=== PATIENT | female | born 1980 | race African-American/Black ===

== ENCOUNTER 2022-04-12 00:47 | Inpatient (IN) | payer MEDICAID ==
[~2022-04-12] VITALS: Ht 167.6 cm; Wt 109.8 kg
[2022-04-12 00:58] VITALS: BP 137/80
--- NOTE | 2022-04-12 01:58 | NUR ---
PT TAKEN TO RADIOLOGY
--- NOTE | 2022-04-12 02:05 | NUR ---
PT RETURN FROM RADIOLOGY TO ER LOBBY
--- NOTE | 2022-04-12 02:12 | NUR ---
PT W/C ASSISTED TO ER BED 4
[2022-04-12 02:25] LABS: BASOPHILS % (AUTO) 0.4 % (0.0-2.0); EOSINOPHILS # (AUTO) 0.1 K/uL (0-0.4); HEMATOCRIT 29.5 % (36-48); HEMOGLOBIN 9.5 g/dL (12.0-16.0); LYMPHOCYTES # (AUTO) 0.8 K/uL (2.5-16.5); LYMPHOCYTES % (AUTO) 23.8 % (20.5-51.1); MEAN CORPUSCULAR HEMOGLOBIN 25 pg (27-31); MEAN CORPUSCULAR HGB CONC 32 g/dL (33-37); MEAN CORPUSCULAR VOLUME 76.9 fL (80-94); MONOCYTES # (AUTO) 0.4 K/uL (0.8-1.0); MONOCYTES % (AUTO) 10.4 % (1.7-9.3); NEUTROPHILS # (AUTO) 2.2 K/uL (1.8-7.7); NEUTROPHILS % (AUTO) 63.4 % (42.2-75.2); PLATELET COUNT (AUTO) 229 K/uL (140-450); RED BLOOD CELL COUNT(AUTO) 3.84 MIL/uL (4.20-5.40); RED CELL DISTRIBUTION WIDTH 16.2 % (11.6-13.7); WHITE BLOOD COUNT (AUTO) 3.5 K/uL (4.8-10.8)
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
--- NOTE | 2022-04-12 02:36 | NUR ---
PATIENT STATED SHE HAS ALLERGIES TO TORADOL AND IODINE (BUT USUALLY TX WITH PRE-MEDICATION OF BENADRYL). ALLERGIES UPDATED IN THE CHART.
--- NOTE | 2022-04-12 02:45 | NUR ---
MD GLASER AT BEDSIDE
[2022-04-12] MEDS ORDERED: diphenhydrAMINE 50 MG/ML VIAL IVP ONE ×2 (02:50→03:00)
[2022-04-12] MEDS ORDERED: MORPHINE SULFATE 4 MG/ML SYR IVP ONE (02:50)
[2022-04-12 02:52] LABS: ALBUMIN 3.7 g/dL (3.4-5.0); ANION GAP 12.1 (8-16); ASPARTATE AMINOTRANSFERASE 13 U/L (15-37); CHLORIDE 103 mmol/L (98-107); CREATININE 0.7 mg/dL (0.6-1.3); GFR ARICAN-AMERICAN 120 mL/min (>90); GLUCOSE 105 mg/dL (74-106); LIPASE 103 U/L (73-393); POTASSIUM 3.1 mmol/L (3.5-5.1); SODIUM SERUM 139 mmol/L (136-145); TOTAL BILIRUBIN 0.3 mg/dL (0.0-1.0); UREA NITROGEN, BLOOD 8 mg/dL (7-18)
--- NOTE | 2022-04-12 02:53 | NUR ---
PATIENT AMBULATING TO THE RR
--- NOTE | 2022-04-12 02:55 | NUR ---
URINE COLLECTED AND WLAKED TO LAB
[2022-04-12 03:20] LABS: BARBITURATE, URINE NEGATIVE ng/ml (NEG <=200); BENZODIAZEPINE, URINE NEGATIVE ng/mL (NEG <=200); CANNABINOID, URINE NEGATIVE ng/mL (NEG <=50); COCAINE, URINE NEGATIVE ng/mL (NEG <=300); OPIATE, URINE NEGATIVE ng/mL (NEG <=2000); PHENCYCLIDINE SCREEN,URINE NEGATIVE ng/mL (NEG <=25)
--- NOTE | 2022-04-12 03:34 | NUR ---
PT TAKEN TO CT
[2022-04-12] MEDS ORDERED: fentaNYL citrate 0.05 MG/ML VIAL IVP ONE (04:10)
[2022-04-12] MEDS ORDERED: POTASSIUM CHLORIDE 10 MEQ TABER PO ONE (04:10)
--- NOTE | 2022-04-12 04:45 | NUR ---
MD GLASER AT BEDSIDE
--- NOTE | 2022-04-12 05:12 | NUR ---
SWAB COLLECTED AND WALKED TO LAB
[2022-04-12] MEDS ORDERED: HEPARIN PER PHARMACY MC PRN ×2 (05:20→08:50)
[2022-04-12] MEDS ORDERED: hePARIN / DEXT 5% PREMIX 250 ML IV ONE (05:20)
[2022-04-12 05:51] LABS: PROTHROMBIN TIME 9.7 secs (10.8-13.4)
[2022-04-12] MEDS ORDERED: LURA20TA PO (06:06)
[2022-04-12] MEDS ORDERED: ATOR10TA PO (06:06)
[2022-04-12] MEDS ORDERED: CARV6.25 PO (06:06)
[2022-04-12] MEDS ORDERED: GABA300C PO (06:06)
[2022-04-12] MEDS ORDERED: ESCI10TA PO (06:08)
[2022-04-12] MEDS ORDERED: METF-346 PO (06:08)
--- NOTE | 2022-04-12 06:28 | NUR ---
LAB AT BEDSIDE
--- NOTE | 2022-04-12 06:40 | NUR ---
PATIETN RESTING IN BED. BED LOW AND LOCKED. ALL NEEDS MET
--- NOTE | 2022-04-12 07:25 | NUR ---
REPORT GIVEN TO MAURIZIO TOURE. TRANSFER OF CARE.
--- NOTE | 2022-04-12 07:38 | NUR ---
SPOKE TO MILLER PHARMACIST, CLARIFICATION REGARDING GIVING HEPARIN WITH PT LAB RESULTS (SEE EMR), STATED THAT IT WAS OK TO GIVE HEPARIN DRIP
[2022-04-12] MEDS ORDERED: HYDROcodone/APAP 7.5/325 MG 1 TAB PO PRN (07:50)
[2022-04-12] MEDS ORDERED: MORPHINE SULFATE 2 MG/ML SYR IVP PRN (07:50)
[2022-04-12] MEDS ORDERED: DOCUSATE SODIUM 100 MG GELCAP PO PRN (07:50)
[2022-04-12] MEDS ORDERED: guaiFENesin DM 200/20 MG-10 ML 10 ML UDC PO PRN (07:50)
[2022-04-12] MEDS ORDERED: ACETAMINOPHEN 325 MG TAB PO PRN (07:50)
[2022-04-12] MEDS ORDERED: POTASSIUM CHLORIDE 10 MEQ TABER PO PRN (07:50)
[2022-04-12] MEDS ORDERED: ONDANSETRON 4 MG/2 ML VIAL IM/IVP PRN (07:50)
[2022-04-12] MEDS ORDERED: INSULIN LISPRO SLIDING SCALE 100 UNITS/ML VIAL SUBQ PRN (07:55)
[2022-04-12] MEDS ORDERED: ALBUTEROL SULFATE/IPRATROPIU 3 ML SOL IH PRN (07:55)
[2022-04-12] MEDS ORDERED: ALBUTEROL 0.083% 2.5 MG/3 ML NEBU INH PRN (07:55)
[2022-04-12] MEDS ORDERED: DEXTROSE 50% 50 ML SYR IVP PRN (07:55)
[2022-04-12] MEDS: metFORMIN 500 MG TAB PO SCH ×2 (08:17→17:00)
[2022-04-12] MEDS ORDERED: hePARIN / DEXT 5% PREMIX 250 ML IV SCH ×2 (08:35→08:50)
[2022-04-12 08:51] LABS: CHOL/HDL RATIO 2.8 (1-4.5); PHOSPHORUS 5.2 mg/dL (2.5-4.9)
--- NOTE | 2022-04-12 09:45 | NUR ---
CLARIFIED WITH DR FIELDS BP MEDICATION STATED TO HOLD BP MEDS WITH SBP LESS THAN 110 AND "OK TO GIVE" SCHEDULED BP MED, SEE EMAR
[2022-04-12] MEDS: PANTOPRAZOLE 40 MG INJ VIAL IVP SCH ×2 (09:56→21:55)
[2022-04-12] MEDS: GABAPENTIN 300 MG CAP PO SCH ×3 (09:57→17:51)
[2022-04-12] MEDS: ESCITALOPRAM 20 MG TAB PO SCH (09:57)
[2022-04-12] MEDS: carvediloL 6.25 MG TAB PO SCH ×2 (10:00→21:52)
--- NOTE | 2022-04-12 10:54 | NUR ---
SAVANNAH LIRA AT BEDSIDE FOR PT EVAL RECEIVE DVERBAL ORDER TO STOP HEPARIN DRIP AND TO START ON LOVENOX 1MG/KG Q12 HOURS AND TO DO BILATERAL DUPLEX OF THE LOWER EXTREMITIES
--- NOTE | 2022-04-12 11:26 | NUR ---
FEATURE WRITER AT BEDSIDE
[2022-04-12] MEDS ORDERED: ENOXAPARIN 120 MG/0.8 ML SYR SUBQ SCH (12:00)
[2022-04-12] MEDS: ALBUTEROL SULFATE/IPRATROPIU 3 ML SOL IH SCH ×3 (12:53→19:00)
--- NOTE | 2022-04-12 13:03 | NUR ---
PT REFUSED 1300 DUONEB TREATMENT.
[2022-04-12] MEDS: BLOOD GLUCOSE MONITORING 1 DEV DEV FS SCH ×3 (13:07→21:00)
[2022-04-12] MEDS ORDERED: IBUPROFEN 600 MG TAB PO PRN (14:55)
--- NOTE | 2022-04-12 14:59 | NUR ---
DR. FIELDS GAVE TORB ORDER FOR IBUPROFEN 600MG Q6H PRN FOR SEVERE PAIN. MADE AWARE OF KETOROLAC ALLERGY AND STATED TO GO THROUGH WITH ORDER.
[2022-04-12] MEDS ORDERED: diphenhydrAMINE 50 MG/ML VIAL IVP SCH (15:00)
[2022-04-12] MEDS: MORPHINE SULFATE 2 MG/ML SYR IVP PRN ×2 (15:53→23:01)
--- NOTE | 2022-04-12 16:10 | NUR ---
PATIENT HAS BEEN SCREENED AND CATEGORIZED MODERATE NUTRITION RISK. PATIENT WILL BE SEEN WITHIN 3-5 DAYS OF ADMISSION. / [address]INE MCD[address]
--- NOTE | 2022-04-12 17:36 | NUR ---
ULTRASOUND AT BEDSIDE
--- NOTE | 2022-04-12 19:27 | NUR ---
PT REFUSED HHN TREATMENT AT THIS TIME. PT HAS HISTORY OF ASTHMA. EXPLAINED TO PT THE RISK AND BENEFIT FROM TREATMENT. PT STATED SHE ONLY TAKES PRN MEDICATION AT HOME AND WOULD LIKE TO BE ON THE SAME SCHEDULE PRN. Addendum: 04/12/22 at 1932 by Zackary Crane RT PT IN NO RESPIRATORY DISTRESS AT THIS TIME. BREATH SOUNDS ARE CLEAR ON AUSCULTATION. PT WAS EDUCATED TO CALL FOR PRN WHEN HAVING SOB.
--- NOTE | 2022-04-12 19:29 | NUR ---
Leann black in [facility] - 04/12/22 at 1930 by CHAZ Pt report given to SIMON SWEET. Transfer of care at this time.
--- NOTE | 2022-04-12 19:30 | NUR ---
Pt report given to JAN STEVEN. Transfer of care at this time.
[2022-04-12] MEDS: ATORVASTATIN 20 MG TAB PO SCH (21:52)
[2022-04-12] MEDS: ENOXAPARIN 120 MG/0.8 ML SYR SUBQ SCH (22:00)
[2022-04-13] MEDS: MORPHINE SULFATE 2 MG/ML SYR IVP PRN ×2 (06:54→17:42)
--- NOTE | 2022-04-13 07:20 | NUR ---
Pt report given to MICKI SALINAS. Transfer of care at this time.
--- NOTE | 2022-04-13 07:26 | NUR ---
Report recieved from MAURIZIO Mullen for transfer of care.
[2022-04-13] MEDS: BLOOD GLUCOSE MONITORING 1 DEV DEV FS SCH ×4 (08:21→20:50)
[2022-04-13] MEDS: metFORMIN 500 MG TAB PO SCH ×2 (08:22→17:41)
--- NOTE | 2022-04-13 08:37 | NUR ---
Patient was given her breakfast tray.
[2022-04-13] MEDS: carvediloL 6.25 MG TAB PO SCH ×2 (09:00→21:01)
--- NOTE | 2022-04-13 09:07 | NUR ---
Dr. Valera at bedside evaluating patient.
[2022-04-13 09:23] LABS: BASOPHILS % (AUTO) 0.5 % (0.0-2.0); EOSINOPHILS # (AUTO) 0.1 K/uL (0-0.4); HEMATOCRIT 26.6 % (36-48); HEMOGLOBIN 8.4 g/dL (12.0-16.0); LYMPHOCYTES # (AUTO) 0.6 K/uL (2.5-16.5); LYMPHOCYTES % (AUTO) 26.6 % (20.5-51.1); MEAN CORPUSCULAR HEMOGLOBIN 24 pg (27-31); MEAN CORPUSCULAR HGB CONC 32 g/dL (33-37); MEAN CORPUSCULAR VOLUME 77.5 fL (80-94); MONOCYTES # (AUTO) 0.3 K/uL (0.8-1.0); MONOCYTES % (AUTO) 13.6 % (1.7-9.3); NEUTROPHILS # (AUTO) 1.2 K/uL (1.8-7.7); NEUTROPHILS % (AUTO) 56.3 % (42.2-75.2); PLATELET COUNT (AUTO) 208 K/uL (140-450); RED BLOOD CELL COUNT(AUTO) 3.43 MIL/uL (4.20-5.40); WHITE BLOOD COUNT (AUTO) 2.2 K/uL (4.8-10.8)
[2022-04-13] MEDS: ESCITALOPRAM 20 MG TAB PO SCH (09:29)
[2022-04-13] MEDS: GABAPENTIN 300 MG CAP PO SCH ×3 (09:29→17:41)
[2022-04-13 09:36] LABS: ANION GAP 8.7 (8-16); CARBON DIOXIDE 30.1 mmol/L (21-32); CREATININE 0.7 mg/dL (0.6-1.3); POTASSIUM 3.8 mmol/L (3.5-5.1)
[2022-04-13] MEDS ORDERED: MORPHINE SULFATE 4 MG/ML SYR IVP ONE (10:35)
[2022-04-13] MEDS: ENOXAPARIN 120 MG/0.8 ML SYR SUBQ SCH ×2 (10:47→21:03)
[2022-04-13] MEDS: PANTOPRAZOLE 40 MG INJ VIAL IVP SCH ×2 (10:51→20:58)
--- NOTE | 2022-04-13 12:05 | NUR ---
Patient was offered her lunch tray. Patient is sitting up on bed to eat.
--- NOTE | 2022-04-13 12:28 | NUR ---
Patient is stating she is having an allergic reaction to fish from lunch tray. Patient is saying her throat is feeling tight. Patient's oxygen is at 97% and respirations are 15. No rash noted. Patient was offered her PRN PO Benadryl and refused. Patient wants her Benadryl IV. Dr. Valera was notified of patients request. Awaiting response. Will continue to monitor patient.
[2022-04-13] MEDS ORDERED: diphenhydrAMINE 50 MG/ML VIAL IVP PRN (13:20)
--- NOTE | 2022-04-13 14:30 | NUR ---
Patient is resting in bed, call light within reach. Vital signs stable. Patient has needs met by staff. Patient is sleeping with no signs of distress. Will continue to monitor.
--- NOTE | 2022-04-13 14:34 | NUR ---
DC PLANNING: THE PATIENT PRESENTED WITH C/O WORSENING CHEST PAIN AND INSPIRATIONAL PAIN, HEMOPTYSIS. H/O OF MITRAL VALVE REGURGE, HTN, PE'S, A-FIB AND ANTI-COAGULATION USE. CT ANGIO SHOWS PE IN THE RLL BRANCH, PULMONARY NODULE ALSO NOTED TO RML. CONSULTS ORDERED WITH PULMONOLOGY, CARDIOLOGY AND GI. K+ 3.1, PHOSPHOROUS 5.2, LIPIDS ELEVATED. STARTED ON LOVENOX, LE DOPPLER NEGATIVE FOR DVT, CT OF ABDOMEN/PELVIS SHOWS POSSIBLE MILD COLITIS. DC PLAN IS FOR THE PATIENT TO RETURN HOME ON PO FIRE EXTINGUISHER CHARGER ANTI-COAGULANTS. CM WILL FOLLOW.
--- NOTE | 2022-04-13 17:14 | NUR ---
Patient will be admitted to care of Dr. Hernandez. Admited to Telemetry. Will go to room 105-A. Belongings list completed. Report to MAURIZIO Mcneil.
--- NOTE | 2022-04-13 17:15 | NUR ---
The patient's care was reviewed and supervised by Kristina Hardy RN.
[2022-04-13 17:30] VITALS: BP 104/61
--- NOTE | 2022-04-13 17:30 | NUR ---
RECEIVED PATIENT FROM ER NURSE FOR CONTINUITY OF CARE. PT ADMITTED FOR PULMONARY EMBOLISM. PT AOX4, ABLE TO MAKE NEEDS KNOWN. RESPIRATIONS EVEN AND UNLABORED. ON ROOM AIR AND NO DISTRESS NOTED. SKIN IS WARM, DRY, AND INTACT. IV SITE ON RAC 18G SALINE LOCKED. ABD SOFT, FLAT, NON-DISTENDED. BOWEL SOUNDS ACTIVE IN ALL QUADRANTS, PT COMPLAINS OF CHEST PAIN 9/10 THAT RADIATES TO THE BACK. WILL MEDICATE WITH PAIN MEDS. PLAN OF CARE DISCUSSED. SAFETY PRECAUTIONS IN PLACE. CALL LIGHT WITHIN REACH. WILL CONTINUE TO MONITOR.
--- NOTE | 2022-04-13 17:42 | NUR ---
COMPLAINED OF CHEST PAIN 06/09. ADMINISTERED PRN PAIN MEDS PER MD ORDERED.
--- NOTE | 2022-04-13 19:41 | NUR ---
ENDORSED TO CERTIFIED PARALEGAL NURSE FOR CONTINUITY OF CARE. PT IS STABLE.
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
[2022-04-13 20:00] VITALS: BP 108/61
--- NOTE | 2022-04-13 21:00 | NUR ---
HS MEDS GIVEN . PRN MEDS MORPHINE AND BENADRYL CHANGED TO Q 4HRS PRN SEVERE PAIN FOR MORPHINE AND PRN ITCHING FOR BENADRYL.PT IS A&OX4 AWAKE IN BED ABLE TO COMMUNICATE NEEDS.RR EVEN AND UNLABORED ON RM AIR. NO DISTRESS NOTED. PT ON TELE MONITOR,CONTINENT OF BOWEL AND BLADDER. SKIN IS INTACT.IV SITE RUA18G S.L. CALL LIGHT WITHIN REACH. ALL SAFETY MEASURES IN PLACE. WILL CONTINUE TO MONITOR.
[2022-04-13] MEDS: ATORVASTATIN 20 MG TAB PO SCH (21:01)
[2022-04-14] VITALS: BP 105/61
[2022-04-14] MEDS: MORPHINE SULFATE 2 MG/ML SYR IVP PRN ×5 (00:19→20:08)
--- NOTE | 2022-04-14 00:30 | NUR ---
MSO4 2MG IVP GIVEN FOR 9/10 PAIN IN BACK AND R KNEE. URINE SENT FOR UA MICROSCOPIC. AT 0100 BENADRYL 25MG IVP GIVEN FOR ITCHING FROM FISH AT LUNCH. ALSO AMBIEN 5MG GIVEN FOR INSOMNIA.
[2022-04-14] MEDS: diphenhydrAMINE 50 MG/ML VIAL IVP PRN ×4 (01:28→20:08)
[2022-04-14] MEDS: ZOLPIDEM 5 MG TAB PO PRN ×2 (01:37→21:03)
[2022-04-14 01:54] LABS: APPEARANCE,URINE CLEAR (CLEAR); BILIRUBIN,URINE NEGATIVE (NEGATIVE); BLOOD, URINE 1+ (NEGATIVE); COLOR,URINE YELLOW (YELLOW); LEUKOCYTE ESTERASE ,URINE NEGATIVE (NEGATIVE); NITRITE, URINE NEGATIVE (NEGATIVE); UGLUCOSE NEGATIVE (NEGATIVE)
[2022-04-14 02:22] LABS: WBC,URINE 0 /HPF (0-5)
[2022-04-14 04:00] VITALS: BP 108/62
--- NOTE | 2022-04-14 05:00 | NUR ---
PT SLEPT SOUNDLY AWOKE FROM PAIN 8/10 SCALE. RECEIVED MSO4 2MG IVP. WILL CONTINUE TO MONITOR.
[2022-04-14] MEDS: BLOOD GLUCOSE MONITORING 1 DEV DEV FS SCH ×4 (06:44→21:01)
--- NOTE | 2022-04-14 07:30 | NUR ---
ENDORSED PT REPORT TO NURSE LUIS SWEET FOR CONTINUITY OF CARE.
--- NOTE | 2022-04-14 07:30 | NUR ---
RECEIVED REPORT FROM PUMP TENDER NURSE FOR CONTINUITY OF CARE. PT IS AWAKE IN BED. A&O4, ABLE TO COMMUNICATE NEEDS. RESPIRATIONS EVEN AND UNLABORED ON ROOM AIR. NO DISTRESS NOTED. PT ON TELE MONITOR. CONTINENT TO VOID AND BM. W/ CRUTCHES INSIDE THE ROOM. SKIN IS INTACT, WARM AND DRY TO TOUCH. IV SITE AT DEREJE 18G, SL. CALL LIGHT WITHIN REACH. SAFETY PRECAUTIONS IN PLACE. WILL CONTINUE TO MONITOR.
[2022-04-14 08:00] VITALS: BP 98/64
--- NOTE | 2022-04-14 08:00 | NUR ---
Patient's Plan of Care was discussed and reviewed with MICKI: CARMEN
[2022-04-14] MEDS: PANTOPRAZOLE 40 MG INJ VIAL IVP SCH ×2 (08:24→20:45)
[2022-04-14] MEDS: ESCITALOPRAM 20 MG TAB PO SCH (08:30)
[2022-04-14] MEDS: ENOXAPARIN 120 MG/0.8 ML SYR SUBQ SCH ×2 (08:30→20:48)
[2022-04-14] MEDS: metFORMIN 500 MG TAB PO SCH ×2 (08:30→16:41)
[2022-04-14] MEDS: GABAPENTIN 300 MG CAP PO SCH ×3 (08:30→16:41)
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
[2022-04-14] MEDS: carvediloL 6.25 MG TAB PO SCH ×2 (09:00→20:46)
[2022-04-14 12:00] VITALS: BP 100/64
--- NOTE | 2022-04-14 12:01 | NUR ---
BLOOD GLUCOSE CHECK DONE. BS 93. NO INSULIN COVERAGE GIVEN. PT COMPLAINT OF PAIN 9/10 ON HER ABD AND CHEST. PRN PAIN MED ADMINISTERED BY RN. PT TOLERATED WELL. NO SOB. NO DIFFICULTY BREATHING. NO DISTRESS NOTED. PT COMFORTABLY LYING IN BED. SAFETY PRECAUTIONS IN PLACE.
[2022-04-14] MEDS: levoFLOXacin 500 MG TAB PO SCH (13:09)
--- NOTE | 2022-04-14 13:13 | NUR ---
LEVOFLOXACIN AND GABAPENTIN GIVEN. PT TEACHING ABOUT MEDS GIVEN. PT VERBALIZED UNDERSTANDING. PT STATED RELIEVED FROM PAIN NOW 02/06.
--- NOTE | 2022-04-14 15:34 | NUR ---
PT COMPLAINED OF ITCHINESS. IV BENADRYL ADMINISTERED BY MAURIZIO MCCRARY.
[2022-04-14 16:00] VITALS: BP 111/70
--- NOTE | 2022-04-14 16:30 | NUR ---
PAGED DR COLLINS REGARDING PTS GI CONSULT.
--- NOTE | 2022-04-14 16:42 | NUR ---
BLOOD GLUCOSE CHECK DONE. BS 99. NO INSULIN COVERAGE GIVEN. PT REFUSED TAKING METFORMIN AND GABAPENTIN. DISCUSSED WITH THE PT THE IMPORTANCE AND RISKS OF NOT TAKING THE MEDS. PT VERBALIZED UNDERSTANDING. PT COMPLAINED OF PAIN 9/10 ON HER STOMACH. MAURIZIO MCCRARY ADMINISTERED PRN PAIN MED ORDERED.
--- NOTE | 2022-04-14 18:07 | NUR ---
DID ROUNDS. PT SLEEPING IN BED. CHEST RISING AND FALLING WITHOUT ACUTE DISTRESS. CALL LIGHT WITHIN REACH. SAFETY PRECAUTIONS IN PLACE.
--- NOTE | 2022-04-14 19:30 | NUR ---
ENDORSED PT TO KNIFE FINISHER NURSE FOR CONTINUITY OF CARE. ALL NEEDS MET THROUGHOUT SHIFT. PT IS STABLE.
--- NOTE | 2022-04-14 19:32 | NUR ---
RECEIVED REPORT FROM AM NURSE LUIS SWEET FOR CONTINUITY OF CARE. PT IS STABLE AWAKE A&OX4 SITTING UP IN BED EATING DINNER.DENIES PAIN. ON RM AIR W/ NO S/S OF ACUTE DISTRESS. RR EVEN AND UNLABORED WITH EQUAL CHEST RISE. GI INTACT. PT'S SKIN IS INTACT. IV DEREJE 18G S.L. PT IS AMBULATORY AND CONTINENT. ALL SAFETY MEASURES IN PLACE. CALL LIGHT WITHIN REACH. WILL CONTINUE TO MONITOR.
[2022-04-14 20:00] VITALS: BP 112/72
--- NOTE | 2022-04-14 20:30 | NUR ---
HS MEDS GIVEN. C/O 06/09 PAIN IN NECK AND BACK ALSO ITCHING. RECEIVED MSO4 2MG IVP FOR PAIN AND BENADRYL 25MG IVP FOR ITCHING. AT 2100 PT REPORTED PAIN AND ITCHING HAD STARTED TO EASE. RECEIVED AMBIEN 5MG PO FOR INSOMNIA.
[2022-04-14] MEDS: ATORVASTATIN 20 MG TAB PO SCH (20:46)
--- NOTE | 2022-04-14 22:00 | NUR ---
MEDS EFFECTIVE PT SLEEPING RR EVEN AND UNLABORED WITH EQUAL CHEST RISE. NAD. WILL CONTINUE TO MONITOR.
[2022-04-15] VITALS: BP 111/71
[2022-04-15] MEDS: diphenhydrAMINE 50 MG/ML VIAL IVP PRN ×4 (00:24→14:24)
[2022-04-15] MEDS: MORPHINE SULFATE 2 MG/ML SYR IVP PRN ×4 (00:24→14:24)
[2022-04-15 04:00] VITALS: BP 111/69
--- NOTE | 2022-04-15 05:15 | NUR ---
AWAKENED W/R KNEE PAIN 8/10 AND ITCHING ON BACK AND NECK. RECEIVED MSO4 2MG IVP FOR PAIN AND BENADRYL 25MG IVP FOR ITCHING.
--- NOTE | 2022-04-15 06:30 | NUR ---
PAIN AND ANTI ITCH MEDS EFFECTIVE. BS=95. NO INSULIN COVERAGE NEEDED. ALL SAFETY MEASURES IN PLACE. WILOL CONTINUE TO MONITOR.
[2022-04-15] MEDS: BLOOD GLUCOSE MONITORING 1 DEV DEV FS SCH ×3 (06:36→16:42)
--- NOTE | 2022-04-15 07:10 | NUR ---
ENDORSED PATIENT TO [facility] FOR CONTINUITY OF CARE. PT IS STABLE . ALL NEEDS MET THROUGHOUT SHIFT.
--- NOTE | 2022-04-15 07:11 | NUR ---
RECEIVED REPORT FROM LEADERSHIP RECRUITER NURSE FOR CONTINUITY OF CARE. PT IS AWAKE IN BED. A&O4, ABLE TO COMMUNICATE NEEDS. RESPIRATIONS EVEN AND UNLABORED ON ROOM AIR. NO DISTRESS NOTED. PT ON TELE MONITOR. SKIN IS INTACT, WARM AND DRY TO TOUCH. IV SITE AT DEREJE 18G, SL. PT CONTINENT TO VOID AND BM. W/ CRUTCHES INSIDE THE ROOM.CALL LIGHT WITHIN REACH. SAFETY PRECAUTIONS IN PLACE. WILL CONTINUE TO MONITOR.
[2022-04-15 08:00] VITALS: BP 121/68
[2022-04-15 08:23] LABS: BASOPHILS % (AUTO) 0.5 % (0.0-2.0); EOSINOPHILS # (AUTO) 0.1 K/uL (0-0.4); EOSINOPHILS % (AUTO) 2.5 % (0.0-4.0); HEMATOCRIT 28.9 % (36-48); HEMOGLOBIN 9.2 g/dL (12.0-16.0); LYMPHOCYTES # (AUTO) 0.8 K/uL (2.5-16.5); MEAN CORPUSCULAR HEMOGLOBIN 25 pg (27-31); MEAN CORPUSCULAR HGB CONC 32 g/dL (33-37); MEAN CORPUSCULAR VOLUME 77.2 fL (80-94); MONOCYTES # (AUTO) 0.3 K/uL (0.8-1.0); NEUTROPHILS # (AUTO) 1.3 K/uL (1.8-7.7); PLATELET COUNT (AUTO) 232 K/uL (140-450); RED BLOOD CELL COUNT(AUTO) 3.74 MIL/uL (4.20-5.40); RED CELL DISTRIBUTION WIDTH 15.8 % (11.6-13.7); WHITE BLOOD COUNT (AUTO) 2.4 K/uL (4.8-10.8)
[2022-04-15 08:58] LABS: ANION GAP 11.9 (8-16); CARBON DIOXIDE 28.2 mmol/L (21-32); CREATININE 0.8 mg/dL (0.6-1.3); POTASSIUM 4.1 mmol/L (3.5-5.1)
[2022-04-15 09:05] LABS: LYMPHOCYTES % (AUTO) 31.8 % (20.5-51.1); MONOCYTES % (AUTO) 12.4 % (1.7-9.3); NEUTROPHILS % (AUTO) 52.8 % (42.2-75.2)
[2022-04-15] MEDS: PANTOPRAZOLE 40 MG INJ VIAL IVP SCH (09:18)
--- NOTE | 2022-04-15 09:19 | NUR ---
SCHEDULED IV MEDS ADMINISTERED BY MAURIZIO ROBBINS. IV BENADRYL AND MORPHINE ADMINISTERED BY RN FOR ABD PAIN 10/10 AND ITCHINESS.
[2022-04-15] MEDS: levoFLOXacin 500 MG TAB PO SCH (09:34)
[2022-04-15] MEDS: carvediloL 6.25 MG TAB PO SCH (09:34)
[2022-04-15] MEDS: metFORMIN 500 MG TAB PO SCH (09:35)
[2022-04-15] MEDS: GABAPENTIN 300 MG CAP PO SCH ×2 (09:35→12:20)
[2022-04-15] MEDS: ESCITALOPRAM 20 MG TAB PO SCH (09:35)
[2022-04-15] MEDS: ENOXAPARIN 120 MG/0.8 ML SYR SUBQ SCH (09:38)
--- NOTE | 2022-04-15 09:42 | NUR ---
ADMINISTERED SCHEDULED MORNING MEDS. PT TEACHING ABOUT MEDS GIVEN. PT STATED UNDERSTANDING. WILL CONTINUE TO MONITOR.
[2022-04-15] MEDS ORDERED: RIVA20TA PO (11:25)
[2022-04-15] MEDS ORDERED: OMEP20EC11 PO (11:26)
--- NOTE | 2022-04-15 11:51 | NUR ---
BLOOD GLUCOSE CHECK DONE. BS 146, NO INSULIN COVERAGE NEEDED. DR PRUITT JUST SAW THE PT. INFORMED PT ABOUT HER DC ORDER. PT VERBALIZED UNDERSTANDING.
[2022-04-15 12:00] VITALS: BP 94/55
[2022-04-15 13:08] VITALS: BP 94/55
--- NOTE | 2022-04-15 14:24 | NUR ---
PT COMPLAINED OF PAIN 9/10 AND ITCHINESS. PRN MEDS ADMINISTERED BY RN.
--- NOTE | 2022-04-15 15:15 | NUR ---
DC PAPERS DISCUSSED WITH THE PT. PT VERBALIZED UNDERSTANDING. PT ESTIMATED TIME OF PICK-UP AT 4PM BY EBEN STATED BY THE PT. PT COMFORTABLY LYING IN BED. NO DISTRESS NOTED. BREATHING EVEN AND UNLABORED. PT STATING RELIEF OF PAIN. NOW 12/07.
--- NOTE | 2022-04-15 16:51 | NUR ---
PT DC HOME. WHEELED VIA WHEELCHAIR OUT TO FRONT LOBBY BY NICKOLAS. REMOVED IV CATHETER INTACT. REMOVED ID WRIST BAND. ALL BELONGINGS TAKEN UPON DC. PT IS STABLE.
--- NOTE | 2022-04-15 16:52 | NUR ---
PT LEFT HER CRUTCHES. PT STATED "I WILL JUST LEAVE THEM HERE BECAUSE I DON'T NEED THEM". PT LEFT STABLE.
[2022-04-15 16:53] VITALS: BP 120/60
== END 2022-04-15 17:15 | disposition home or self-care (01) | DRG 134 ==
LOC: MED 00:47 → MTU 06:25
PROVIDERS: ADMIT Student in an Organized Health Care Education/Training Program; ATTEND Student in an Organized Health Care Education/Training Program
DX: I26.99 Other pulmonary embolism without acute cor pulmonale (principal); K92.0 Hematemesis; D50.9 Iron deficiency anemia, unspecified; K27.9 Peptic ulcer, site unspecified, unspecified as acute or chronic, without hemorrhage or perforation; E87.6 Hypokalemia; R06.03 Acute respiratory distress; E78.00 Pure hypercholesterolemia, unspecified; I48.0 Paroxysmal atrial fibrillation; I34.0 Nonrheumatic mitral (valve) insufficiency; E78.5 Hyperlipidemia, unspecified; J45.909 Unspecified asthma, uncomplicated; R04.2 Hemoptysis; R73.03 Prediabetes; S89.91XA Unspecified injury of right lower leg, initial encounter; X58.XXXA Exposure to other specified factors, initial encounter; Z20.822 Contact with and (suspected) exposure to COVID-19; Z91.041 Radiographic dye allergy status; Z88.8 Allergy status to other drugs, medicaments and biological substances; Z79.899 Other long term (current) drug therapy; Y93.89 Activity, other specified; Y92.89 Other specified places as the place of occurrence of the external cause; Y99.8 Other external cause status
CPT/HCPCS: 36415; 71045; 71275; 80048; 80053; 80305; 81001; 82150; 82948; 83690; 83735; 83880; 84100; 84484; 85025; 85610; 85730; 87081; 93005; 93925; 96374; 96375; 99285; C9113; J1200; J1644; J1650; J2270; J3010; Q0092; Q0163; Q9967

== ENCOUNTER 2022-05-09 19:48 | Emergency (ER) | payer MEDICAID ==
[~2022-05-09] VITALS: Ht 167.6 cm; Wt 109.8 kg
[~2022-05-09 19:48] MED LIST: ATOR10TA PO; CARV6.25 PO; ESCI10TA PO; GABA300C PO; LURA20TA PO; METF-346 PO; OMEP20EC11 PO; RIVA20TA PO
[2022-05-09 20:12] VITALS: BP 130/84
--- NOTE | 2022-05-09 20:41 | NUR ---
PT TAKEN TO BED 3
--- NOTE | 2022-05-09 20:58 | NUR ---
COMPOSING ROOM SUPERVISOR AT BEDSIDE
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
--- NOTE | 2022-05-09 21:16 | NUR ---
Dr. Jackson examining patient.
--- NOTE | 2022-05-09 21:47 | NUR ---
LABS DRAWN AND WALKED TO LAB
[2022-05-09 21:57] LABS: BASOPHILS % (AUTO) 0.3 % (0.0-2.0); EOSINOPHILS # (AUTO) 0.1 K/uL (0-0.4); EOSINOPHILS % (AUTO) 1.2 % (0.0-4.0); HEMOGLOBIN 9.5 g/dL (12.0-16.0); LYMPHOCYTES # (AUTO) 1.1 K/uL (2.5-16.5); LYMPHOCYTES % (AUTO) 16.3 % (20.5-51.1); MEAN CORPUSCULAR HEMOGLOBIN 24 pg (27-31); MEAN CORPUSCULAR HGB CONC 32 g/dL (33-37); MEAN CORPUSCULAR VOLUME 74.6 fL (80-94); MONOCYTES # (AUTO) 0.6 K/uL (0.8-1.0); MONOCYTES % (AUTO) 8.7 % (1.7-9.3); NEUTROPHILS # (AUTO) 4.8 K/uL (1.8-7.7); NEUTROPHILS % (AUTO) 73.5 % (42.2-75.2); PLATELET COUNT (AUTO) 259 K/uL (140-450); RED BLOOD CELL COUNT(AUTO) 4.02 MIL/uL (4.20-5.40); RED CELL DISTRIBUTION WIDTH 16.5 % (11.6-13.7); WHITE BLOOD COUNT (AUTO) 6.6 K/uL (4.8-10.8)
[2022-05-09] MEDS ORDERED: methylPREDNISolone SS 125 MG/2 ML VIAL IVP ONE (22:00)
[2022-05-09] MEDS ORDERED: diphenhydrAMINE 50 MG/ML VIAL IVP ONE (22:00)
[2022-05-09 22:13] LABS: ALBUMIN 3.4 g/dL (3.4-5.0); ANION GAP 13.3 (8-16); ASPARTATE AMINOTRANSFERASE 17 U/L (15-37); CARBON DIOXIDE 27.6 mmol/L (21-32); CHLORIDE 101 mmol/L (98-107); CREATININE 0.9 mg/dL (0.6-1.3); GFR ARICAN-AMERICAN 90 mL/min (>90); GLUCOSE 100 mg/dL (74-106); SODIUM SERUM 139 mmol/L (136-145); TOTAL BILIRUBIN 0.3 mg/dL (0.0-1.0); UREA NITROGEN, BLOOD 8 mg/dL (7-18)
[2022-05-09 22:17] LABS: POTASSIUM 2.9 mmol/L (3.5-5.1)
[2022-05-09] MEDS ORDERED: POTASSIUM CHLORIDE 10 MEQ TABER PO ONE (23:05)
[2022-05-09] MEDS ORDERED: MORPHINE SULFATE 4 MG/ML SYR IVP ONE (23:10)
[2022-05-10] MEDS ORDERED: diphenhydrAMINE 50 MG/ML VIAL IVP ONE (00:10)
--- NOTE | 2022-05-10 00:12 | NUR ---
PT RETURNED FROM CT
--- NOTE | 2022-05-10 00:14 | NUR ---
ERMD AT BEDSIDE EXAMINING PT
--- NOTE | 2022-05-10 00:14 | NUR ---
Leann black in [facility] - 05/10/22 at 0014 by [email or web address] ERMD AT BEDSIDE EXAMINING PT
[2022-05-10] MEDS ORDERED: MORPHINE SULFATE 4 MG/ML SYR IVP ONE (01:15)
[2022-05-10] MEDS ORDERED: MORPHINE SULFATE 4 MG/ML SYR ONE (01:21)
[2022-05-10] MEDS ORDERED: ACET-8386 PO (03:22)
[2022-05-10] MEDS ORDERED: ONDA8TAB87 PO (03:22)
[2022-05-10 03:35] VITALS: BP 122/74
--- NOTE | 2022-05-10 03:36 | NUR ---
Patient discharged with v/s stable. Written and verbal after care instructions given and explained. Patient alert, oriented and verbalized understanding of instructions. Ambulatory with steady gait. All questions addressed prior to discharge. ID band removed. Patient advised to follow up with PMD. Rx of ZOFRAN AND NORCO given. Patient educated on indication of medication including possible reaction and side effects. Opportunity to ask questions provided and answered. VSS, A/OX4, UNLABORED BREATHING, AMBULATORY, AND CALM DEMEANOR.
== END 2022-05-10 03:36 | disposition home or self-care (01) ==
LOC: MED 19:48
DX: R07.89 Other chest pain (principal); E87.6 Hypokalemia; J45.909 Unspecified asthma, uncomplicated; E11.9 Type 2 diabetes mellitus without complications; I10 Essential (primary) hypertension; Z79.84 Long term (current) use of oral hypoglycemic drugs; Z79.899 Other long term (current) drug therapy; Z88.8 Allergy status to other drugs, medicaments and biological substances
CPT/HCPCS: 36415; 71045; 71275; 80053; 81025; 84484; 85025; 93005; 96374; 96375; 96376; 99285; J1200; J1642; J2270; J2930; Q9967

== ENCOUNTER 2022-05-25 12:32 | Inpatient (IN) | payer MEDICAID ==
[~2022-05-25] VITALS: Ht 167.6 cm; Wt 112.0 kg
[~2022-05-25 12:32] MED LIST changes: +ACET-8386 PO; +ONDA8TAB87 PO
[2022-05-25 12:51] VITALS: BP 108/74
--- NOTE | 2022-05-25 12:59 | NUR ---
PT AMBULATED TO ER BED 3
--- NOTE | 2022-05-25 13:14 | NUR ---
DR LOPEZ AT BEDSIDE EVALUATING PT
[2022-05-25] MEDS ORDERED: diphenhydrAMINE 50 MG/ML VIAL IVP ONE ×2 (13:20→15:25)
[2022-05-25] MEDS ORDERED: MORPHINE SULFATE 4 MG/ML SYR IVP ONE ×2 (13:20→15:25)
--- NOTE | 2022-05-25 13:31 | NUR ---
lab at bedside
--- NOTE | 2022-05-25 13:35 | NUR ---
41 y/o female, c/o chest pain x 5 days. Pain is 10/10, sharp, constant, that radiates to back. Took tylenol and [place] at home with minimal relief. Pt also c/o hematemesis x 5 days last episode last night. States she has hx of PE last in January, was prescribed Xarelto but has not started. Pt is A/O x 4, respirations even and unlabored. HOB elevated for comfort. PMH: PE, asthma, HTN, Afib, Mitral valve regurgitation meds: lexapro, gabapentin, latuda, coreg, prilosec, xarelto
--- NOTE | 2022-05-25 13:55 | NUR ---
SOURAV Taylor at bedside for IV by guided U/S.
[2022-05-25 13:59] LABS: BASOPHILS % (AUTO) 0.1 % (0.0-2.0); EOSINOPHILS % (AUTO) 0.1 % (0.0-4.0); HEMATOCRIT 25.9 % (36-48); HEMOGLOBIN 8.3 g/dL (12.0-16.0); LYMPHOCYTES # (AUTO) 0.3 K/uL (2.5-16.5); LYMPHOCYTES % (AUTO) 6.3 % (20.5-51.1); MEAN CORPUSCULAR HEMOGLOBIN 24 pg (27-31); MEAN CORPUSCULAR HGB CONC 32 g/dL (33-37); MONOCYTES # (AUTO) 0.2 K/uL (0.8-1.0); MONOCYTES % (AUTO) 3.9 % (1.7-9.3); NEUTROPHILS # (AUTO) 4.5 K/uL (1.8-7.7); NEUTROPHILS % (AUTO) 89.6 % (42.2-75.2); PLATELET COUNT (AUTO) 174 K/uL (140-450)
[2022-05-25 14:09] LABS: ALBUMIN 2.9 g/dL (3.4-5.0); ANION GAP 10.9 (8-16); CARBON DIOXIDE 26.5 mmol/L (21-32); CREATININE 0.9 mg/dL (0.6-1.3); POTASSIUM 4.4 mmol/L (3.5-5.1); TOTAL BILIRUBIN 0.3 mg/dL (0.0-1.0)
[2022-05-25 14:14] LABS: LIPASE 70 U/L (73-393)
--- NOTE | 2022-05-25 14:16 | NUR ---
TAKEN TO CT VIA GUILLAUME
--- NOTE | 2022-05-25 14:31 | NUR ---
[facility]
[2022-05-25] MEDS ORDERED: NACL 0.9% 1,000 ML IV ONE (15:25)
[2022-05-25] MEDS ORDERED: ENOXAPARIN 100 MG/ML SYR SUBQ ONE (15:30)
--- NOTE | 2022-05-25 15:38 | NUR ---
covid (josette) swab collected
[2022-05-25] MEDS ORDERED: PROP20TA29 PO (16:03)
[2022-05-25] MEDS ORDERED: LURA60TA PO (16:03)
[2022-05-25 16:09] LABS: PROTHROMBIN TIME 10.3 secs (10.8-13.4)
[2022-05-25] MEDS ORDERED: DOCUSATE SODIUM 100 MG GELCAP PO PRN (16:15)
[2022-05-25] MEDS ORDERED: ACETAMINOPHEN 325 MG TAB PO PRN (16:15)
[2022-05-25] MEDS ORDERED: ONDANSETRON 4 MG/2 ML VIAL IVP PRN (16:15)
[2022-05-25] MEDS ORDERED: MAG SULF 2000 MG/WATER PREMIX 50 ML IV PRN (16:15)
[2022-05-25] MEDS ORDERED: ZOLPIDEM 10 MG TAB PO PRN (16:15)
[2022-05-25] MEDS ORDERED: DEXTROSE 50% 50 ML SYR IVP PRN (16:15)
[2022-05-25] MEDS ORDERED: LORazepam 2 MG/ML VIAL IVP PRN (16:15)
[2022-05-25] MEDS ORDERED: POTASSIUM CHLORIDE 10 MEQ TABER PO PRN (16:15)
[2022-05-25] MEDS: BLOOD GLUCOSE MONITORING 1 DEV DEV FS SCH ×2 (17:06→20:38)
--- NOTE | 2022-05-25 17:08 | NUR ---
pt ambulated to restroom with steady gait
--- NOTE | 2022-05-25 17:22 | NUR ---
RECEIVED CRITICAL LAB RESULT OF PTT BEING TOO HIGH AND NEEDS TO BE SENT OUT. DR ABDI PAGED. DR ABDI NOTIFIED THAT PT RECEIVED LOVENOX ABOUT [address] ABDI STATED TO HOLD LOVENOX TONIGHT AND AWAIT REDRAW IN THE MORNING TO DETERMINE IF MORNING DOSE IS TO BE GIVEN.
--- NOTE | 2022-05-25 17:32 | NUR ---
Patient will be admitted to care of Dr Matthews. Admited to telemetry. Will go to room 107b. Belongings list completed. Report to MAURIZIO Barbour.
[2022-05-25] MEDS: GABAPENTIN 300 MG CAP PO SCH (17:47)
[2022-05-25 18:00] VITALS: BP 136/68
--- NOTE | 2022-05-25 18:00 | NUR ---
RECEIVED REPORT FROM ER NURSE. PT A/O X4. ABLE TO MAKE NEEDS KNOWN. NO SOB NOTED. O2 SATURATION @ 100%. PT STATES SHARP PAIN FROM CHEST TO ABDOMEN. CARDIAC DIET. SR ON THE MONITOR. JAVED #18 SL. SCHEDULED MEDICATION GIVEN. CRACKERS AND ORAL FLUIDS PROVIDED REQUESTED. NEEDS ALL MET AT THIS TIME. SAFETY MEASURES IN PLACE. WILL ENDORSE PLAN OF CARE TO NIGHTSHIFT NURSE.
[2022-05-25] MEDS: MORPHINE SULFATE 2 MG/ML SYR IVP PRN ×2 (18:31→22:33)
--- NOTE | 2022-05-25 19:16 | NUR ---
REPORT GIVEN TO [facility] FOR CONTINUITY OF CARE.
[2022-05-25 20:00] VITALS: BP 115/65
--- NOTE | 2022-05-25 20:20 | NUR ---
PATIENT COMPLAINED OF ITCHING, NOTIFIED DR. REDMAN WITH ORDERS NOTED, CARRIED OUT.
[2022-05-25] MEDS ORDERED: diphenhydrAMINE 50 MG/ML VIAL IVP SCH (20:35)
[2022-05-25] MEDS: INSULIN LISPRO SLIDING SCALE 100 UNITS/ML VIAL SUBQ PRN (20:38)
--- NOTE | 2022-05-25 20:38 | NUR ---
BLOOD SUGAR WAS 226, HUMALOG INSULIN ADMINISTERED ORDERED PER SLIDING SCALE.
[2022-05-25] MEDS: ATORVASTATIN 20 MG TAB PO SCH (20:46)
[2022-05-25] MEDS: carvediloL 6.25 MG TAB PO SCH (20:47)
[2022-05-25] MEDS ORDERED: LOVENOX 1MG/KG Q12H SUBQ SCH (21:00)
--- NOTE | 2022-05-25 22:33 | NUR ---
COMPLAINED OF MODERATE BACK PAIN, MEDICATED.
--- NOTE | 2022-05-25 22:35 | NUR ---
RECEIVED REPORT FROM HARIRS JEAN-BAPTISTE. PATIENT IS AAOX4 ON ROOM AIR RESTING COMFORTABLY IN BED. NO S/S OF RESPIRATORY DISTRESS. BREATHING NORMAL UNLABORED. SAFETY MEASURES ARE IN PLACE. CALL LIGHT WITHIN REACH. NO COMPLAINTS OF PAIN AT THIS TIME. WILL CONTINUE TO MONITOR. Addendum: 05/25/22 at 5 by Va Jiang RN RN 1916 RECEIVED REPORT FROM NURSE IGLESIAS.
[2022-05-26] VITALS: BP 104/67
--- NOTE | 2022-05-26 02:00 | NUR ---
PATIENT ASKED FOR CRACKER AND JUICE, NEEDS MET.
[2022-05-26] MEDS: MORPHINE SULFATE 2 MG/ML SYR IVP PRN ×3 (03:39→18:24)
--- NOTE | 2022-05-26 03:39 | NUR ---
V/S : 121/82, 67, 97.0, 18, 98%
[2022-05-26 04:00] VITALS: BP 121/82
[2022-05-26] MEDS ORDERED: ENOXAPARIN 120 MG/0.8 ML SYR SUBQ SCH (05:00)
--- NOTE | 2022-05-26 05:10 | NUR ---
PATIENT IS AWAKE, NO S/S OF RESPIRATORY DISTRESS. BREATHING REGULAR UNLABORED. CALL LIGHT WITHIN REACH.
[2022-05-26] MEDS: BLOOD GLUCOSE MONITORING 1 DEV DEV FS SCH ×4 (06:40→21:29)
[2022-05-26] MEDS: INSULIN LISPRO SLIDING SCALE 100 UNITS/ML VIAL SUBQ PRN ×2 (06:41→11:41)
--- NOTE | 2022-05-26 06:41 | NUR ---
BLOOD SUGAR WAS 161, 2 UNITS HUMALOG INSULIN ADMINISTERED PER SLIDING SCALE.
[2022-05-26 07:13] LABS: BASOPHILS % (AUTO) 0.1 % (0.0-2.0); EOSINOPHILS % (AUTO) 0.1 % (0.0-4.0); HEMATOCRIT 23.5 % (36-48); HEMOGLOBIN 7.5 g/dL (12.0-16.0); LYMPHOCYTES # (AUTO) 0.9 K/uL (2.5-16.5); LYMPHOCYTES % (AUTO) 20.3 % (20.5-51.1); MEAN CORPUSCULAR HEMOGLOBIN 24 pg (27-31); MEAN CORPUSCULAR HGB CONC 32 g/dL (33-37); MEAN CORPUSCULAR VOLUME 73.7 fL (80-94); MONOCYTES # (AUTO) 0.5 K/uL (0.8-1.0); MONOCYTES % (AUTO) 10.6 % (1.7-9.3); NEUTROPHILS # (AUTO) 3.2 K/uL (1.8-7.7); NEUTROPHILS % (AUTO) 68.9 % (42.2-75.2); PLATELET COUNT (AUTO) 223 K/uL (140-450); RED BLOOD CELL COUNT(AUTO) 3.19 MIL/uL (4.20-5.40); RED CELL DISTRIBUTION WIDTH 17.3 % (11.6-13.7); WHITE BLOOD COUNT (AUTO) 4.6 K/uL (4.8-10.8)
--- NOTE | 2022-05-26 07:31 | NUR ---
ENDORSED PATIENT TO MORNING NURSE FOR CONTINUITY OF CARE. PT IS STABLE. NO SOB.
--- NOTE | 2022-05-26 07:32 | NUR ---
RECEIVED REPORT FROM MIS DIRECTOR NURSE FOR CONTINUITY OF CARE. PT SLEEPING, EASILY AROUSABLE BY VERBAL STIMULI. RESPIRATIONS EVEN AND UNLABORED ON RA. PT ON TELE MONITOR. A&O4, ABLE TO COMMUNICATE NEEDS. IV SITE AT [facility] 18G, SL. SKIN IS INTACT, DRY AND WARM TO TOUCH. CALL LIGHT WITHIN REACH. SAFETY PRECAUTIONS IN PLACE. WILL CONTINUE TO MONITOR.
[2022-05-26 07:33] LABS: ANION GAP 9.8 (8-16); CARBON DIOXIDE 28.9 mmol/L (21-32); CREATININE 0.8 mg/dL (0.6-1.3); POTASSIUM 3.7 mmol/L (3.5-5.1)
[2022-05-26 08:00] VITALS: BP 111/70
[2022-05-26] MEDS ORDERED: PANTOPRAZOLE 40 MG TABEC PO SCH (09:00)
[2022-05-26] MEDS ORDERED: PANTOPRAZOLE 40 MG INJ VIAL IVP SCH (09:00)
--- NOTE | 2022-05-26 09:03 | NUR ---
PT COMPLAINING OF CHEST AND BACK PAIN 07/09. PT SPECIFICALLY ASKED FOR MORPHINE. PT STATED "NORCO DOESN'T WORK FOR ME". PT CHECKED AND SEEN BY DR REDMAN. CLARIFIED ORDER FOR PAIN MED. OK TO GIVE MORPHINE Q4.
[2022-05-26] MEDS: carvediloL 6.25 MG TAB PO SCH ×2 (09:20→21:39)
[2022-05-26] MEDS: GABAPENTIN 300 MG CAP PO SCH ×3 (09:20→17:14)
[2022-05-26] MEDS: ESCITALOPRAM 20 MG TAB PO SCH (09:20)
--- NOTE | 2022-05-26 09:22 | NUR ---
ADMINISTERED SCHEDULED MORNING MEDS. PT TEACHING ABOUT MEDS GIVEN. PT VERBALIZED UNDERSTANDING.
--- NOTE | 2022-05-26 09:55 | NUR ---
SCHEDULED IV MED AND PRN MED FOR PAIN ADMINISTERED BY MAURIZIO KAMINSKI. NO ADVERSE REACTION NOTED. WILL CONTINUE TO MONITOR.
--- NOTE | 2022-05-26 10:02 | NUR ---
PATIENT HAS BEEN SCREENED AND CATEGORIZED LOW NUTRITION RISK. PATIENT WILL BE SEEN WITHIN 7 DAYS OF ADMISSION. 06/01/[address]
--- NOTE | 2022-05-26 11:43 | NUR ---
SLIDING SCALE INSULIN ADMINISTERED FOR BS 186.
[2022-05-26 12:00] VITALS: BP 93/58
[2022-05-26] MEDS: PANTOPRAZOLE 40 MG INJ VIAL IVP SCH ×2 (14:00→21:38)
--- NOTE | 2022-05-26 14:00 | NUR ---
PT COMPLAINING OF PAIN 8/10 ON HER BACK. SBP 100'S. INFORMED PT BP TOO LOW FOR MORPHINE. GAVE PAIN MED OPTIONS. PT STATED OTHER PAIN MEDS DOESN'T WORK FOR HER. PT AGREED NOT TO HAVE PAIN MEDS. WILL RETAKE BP.
[2022-05-26] MEDS: SODIUM FERRIC GLUCONATE 125 MG in NACL 0.9% 100 ML IV SCH (14:40)
--- NOTE | 2022-05-26 14:40 | NUR ---
FERRLECIT ADMINISTERED BY MAURIZIO BYERS. NO ADVERSE REACTION NOTED. WILL CONTINUE TO MONITOR.
[2022-05-26 16:00] VITALS: BP 99/69
[2022-05-26] MEDS: ENOXAPARIN 120 MG/0.8 ML SYR SUBQ SCH (17:28)
--- NOTE | 2022-05-26 17:38 | NUR ---
ADMINISTERED SCHEDULED MEDS. NO INSULIN COVERAGE ADMINISTERED FOR BS 109.
--- NOTE | 2022-05-26 18:24 | NUR ---
PRN PAIN MED ADMINISTERED BY MAURIZIO BYERS FOR BACK PAIN 05/09. SBP 120'S .
--- NOTE | 2022-05-26 19:30 | NUR ---
RECEIVED ENDORSEMENT FROM DAY SHIFT NURSE FOR CONTINUITY OF PT CARE. PT IS AWAKE, ALERT, ORIENTED X 4 AND ABLE TO VERBALIZED NEEDS. PT IS ON CARDIAC DIET AT THIS TIME. PT IS CONTINENT AND ABLE TO AMBULATES TO RESTROOM WITH STEADY GAIT. SALINE LOCK ON LEFT UPPER ARM 18G INTACT AND PATENT. SKIN INTACT, NO SKIN PROBLEM. CONTINUE MONITORING.
--- NOTE | 2022-05-26 19:30 | NUR ---
REVISE PREVIOUS NOTES ON IV SITE. SALINE LOCK IS ON RIGHT UPPER ARM.
--- NOTE | 2022-05-26 19:31 | NUR ---
ENDORSED PT TO CONSULTING SALES EXECUTIVE NURSE FOR CONTINUITY OF CARE. ALL NEEDS MET THROUGHOUT SHIFT. PT IS STABLE.
[2022-05-26 20:00] VITALS: BP 112/65
[2022-05-26] MEDS: ATORVASTATIN 20 MG TAB PO SCH (21:41)
[2022-05-27] VITALS: BP 111/72
[2022-05-27] MEDS: MORPHINE SULFATE 2 MG/ML SYR IVP PRN ×5 (00:49→21:27)
--- NOTE | 2022-05-27 00:49 | NUR ---
PT COMPLAINTS OF BACK PAIN 03/09, PAIN MEDICATION MORPHINE ADMINISTERED ORDER.
--- NOTE | 2022-05-27 01:49 | NUR ---
PT IS ASLEEP, NO FACIAL GRIMACING. NO SOB OR DISTRESS.
--- NOTE | 2022-05-27 02:30 | NUR ---
PT IS ASLEEP.
[2022-05-27 04:00] VITALS: BP 108/69
--- NOTE | 2022-05-27 05:22 | NUR ---
PT COMPLAINTS OF PIN ON BACK AND ABDOMEN 03/09. PAIN MEDICATION ADMINISTERED ORDER.
--- NOTE | 2022-05-27 05:30 | NUR ---
RECEIVED A CALL FROM LAB, SAID THAT SHE WAS ABLE TO GET BLOOD DRAWN FROM PT BUT BLOOD WAS HEMOLYZED. SHE ALSO SAID THAT PT WAS HARD STICK. NURSE ASKED IF SHE WILL DRAW BLOOD AGAIN. EXPLOSIVE OPERATOR STATED AGAIN THAT SHE WAS A HARD STICK, SUGGESTED FOR PICC LINE. WAS INFORMED. BLOOD SUGAR CHECK DONE. BS 90. NO INSULIN COVERAGE GIVEN. SCHEDULED MEDS ADMINISTERED. CALL LIGHT WITHIN REACH. SAFETY PRECAUTIONS IN PLACE. WILL CONTINUE TO MONITOR. Addendum: 05/27/22 at 1757 by Evonne Garay LVN WRONG TIME.
[2022-05-27] MEDS: ENOXAPARIN 120 MG/0.8 ML SYR SUBQ SCH ×2 (05:33→17:23)
[2022-05-27] MEDS: BLOOD GLUCOSE MONITORING 1 DEV DEV FS SCH ×4 (06:59→20:54)
--- NOTE | 2022-05-27 07:20 | NUR ---
PT IS AROUSABLE ON STIMULI. PT STATED PAIN MEDICATION IS EFFECTIVE AND PAIN DECREASE. NO ANY ABNORMALITY NOTED. ENDORSED TO DAY SHIFT NURSE FOR CONTINUITY OF CARE. ALL SAFETY MEASURES IN PLACE.
--- NOTE | 2022-05-27 07:21 | NUR ---
RECEIVED REPORT FROM SHIPPER/RECEIVER NURSE FOR CONTINUITY OF CARE. PT SLEEPING, EASILY AROUSABLE BY VERBAL STIMULI. A&O4, ABLE TO COMMUNICATE NEEDS. RESPIRATIONS EVEN AND UNLABORED ON ROOM AIR. NO DISTRESS NOTED. ON TELE MONITOR. SKIN IS INTACT, WARM AND DRY TO TOUCH. IV SITE AT [facility]. CALL LIGHT WITHIN REACH. SAFETY PRECAUTIONS IN PLACE. WILL CONTINUE TO MONITOR.
[2022-05-27 08:00] VITALS: BP 109/68
--- NOTE | 2022-05-27 08:00 | NUR ---
PLAN OF CARE WAS DISCUSSED TO CARMEN SWEET.
[2022-05-27] MEDS: ESCITALOPRAM 20 MG TAB PO SCH (09:53)
[2022-05-27] MEDS: GABAPENTIN 300 MG CAP PO SCH ×3 (09:53→17:22)
[2022-05-27] MEDS: carvediloL 6.25 MG TAB PO SCH ×2 (09:53→20:54)
--- NOTE | 2022-05-27 10:00 | NUR ---
ADMINISTERED SCHEDULED MORNING MEDS. PT TEACHING ABOUT MEDS GIVEN. PT VERBALIZED UNDERSTANDING. PT COMPLAINING OF 10/10 BACK PAIN. RN WAS INFORMED. MAURIZIO ENGLISH WILL ADMINISTER PRN PAIN MED AND SCHEDULED IV MED. PT WAS SEEN AND CHECKED BY DR FIELDS. REMINDED PT ABOUT OCCULT BLOOD LAB TEST. PT VERBALIZED UNDERSTANDING. SAFETY PRECAUTIONS IN PLACE. WILL CONTINUE TO MONITOR.
[2022-05-27] MEDS: PANTOPRAZOLE 40 MG INJ VIAL IVP SCH ×2 (10:24→20:54)
--- NOTE | 2022-05-27 10:24 | NUR ---
PT WAS GIVEN THE SCHEDULED AM MEDCIATION AND WAS MEDICATED WITH PAIN MEDICINE FOR PAIN RATE OF 9/10.
[2022-05-27 12:00] VITALS: BP 106/65
[2022-05-27] MEDS: INSULIN LISPRO SLIDING SCALE 100 UNITS/ML VIAL SUBQ PRN (12:10)
--- NOTE | 2022-05-27 12:18 | NUR ---
BS 167. SLIDING SCALE INSULIN ADMINISTERED.
[2022-05-27] MEDS: SODIUM FERRIC GLUCONATE 125 MG in NACL 0.9% 100 ML IV SCH (14:43)
[2022-05-27] MEDS ORDERED: diphenhydrAMINE 50 MG/ML VIAL IVP SCH (15:32)
--- NOTE | 2022-05-27 15:39 | NUR ---
PT COMPLAINED OF ITCHINESS WITH THE FERRLICIT IVF AND STATES, "THIS HAPPENED THE LAST TIME AND BENADRYL HELPED". FERRLICIT STOPPED AND IV FLUSHED WITH NS. CONTACTED MD AND MD INPUTTED ONE TIME DOSE OF BENADRYL. ONE TIME BENADRYL GIVEN AND FERRLICIT RESTARTED. NEEDS ALL MET AT THIS TIME. ALL SAFETY MEASURES IN PLACE.
[2022-05-27 16:00] VITALS: BP 101/62
--- NOTE | 2022-05-27 16:05 | NUR ---
PT STATES RELIEF OF ITCHINESS. PT TOLERATING FERRLICIT IVF. PRIMARY NURSE BACK FROM BREAK AND REPORT GIVEN.
[2022-05-27 16:57] LABS: ANION GAP 11.8 (8-16); CARBON DIOXIDE 26.4 mmol/L (21-32); CREATININE 0.8 mg/dL (0.6-1.3); POTASSIUM 3.2 mmol/L (3.5-5.1)
--- NOTE | 2022-05-27 17:30 | NUR ---
RECEIVED A CALL FROM LAB, SAID THAT SHE WAS ABLE TO GET BLOOD DRAWN FROM PT BUT BLOOD WAS HEMOLYZED. SHE ALSO SAID THAT PT WAS HARD STICK. NURSE ASKED IF SHE WILL DRAW BLOOD AGAIN. USED BUILDING MATERIALS YARD WORKER STATED AGAIN THAT SHE WAS A HARD STICK, SUGGESTED FOR PICC LINE. WAS INFORMED. BLOOD SUGAR CHECK DONE. BS 90. NO INSULIN COVERAGE GIVEN. SCHEDULED MEDS ADMINISTERED. CALL LIGHT WITHIN REACH. SAFETY PRECAUTIONS IN PLACE. WILL CONTINUE TO MONITOR.
--- NOTE | 2022-05-27 17:45 | NUR ---
PER DR FIELDS, DRAW BLOOD TOMORROW AM. WILL ENDORSE.
--- NOTE | 2022-05-27 19:29 | NUR ---
ENDORSED PT TO CHEMICAL OPERATIONS SPECIALIST NURSE FOR CONTINUITY OF CARE. ALL NEEDS MET THROUGHOUT SHIFT. PT IS STABLE.
[2022-05-27 20:00] VITALS: BP 106/67
[2022-05-27] MEDS: ATORVASTATIN 20 MG TAB PO SCH (20:54)
--- NOTE | 2022-05-27 21:00 | NUR ---
BLOOD SUGAR WAS 106. NO INSULIN COVERAGE NEEDED.
--- NOTE | 2022-05-27 21:15 | NUR ---
SCHEDULED MEDICATION GIVEN. PT TOLERATED WELL. WILL CONTINUE TO MONITOR.
--- NOTE | 2022-05-27 21:30 | NUR ---
PT COMPLAINED OF 9/10 CHEST PAIN. PRN PAIN MEDICATION GIVEN. PT TOLERATED WELL. WILL CONTINUE TO MONITOR.
[2022-05-28] VITALS: BP 106/67
--- NOTE | 2022-05-28 00:15 | NUR ---
PT ASLEEP. VISIBLE CHEST RISE AND FALL NOTED. NO DISTRESS NOTED. WILL CONTINUE TO MONITOR.
[2022-05-28] MEDS: MORPHINE SULFATE 2 MG/ML SYR IVP PRN ×5 (02:02→20:16)
[2022-05-28 04:00] VITALS: BP 107/65
[2022-05-28] MEDS: ENOXAPARIN 120 MG/0.8 ML SYR SUBQ SCH ×2 (05:34→17:49)
[2022-05-28 06:27] LABS: BASOPHILS % (AUTO) 0.1 % (0.0-2.0); EOSINOPHILS # (AUTO) 0.1 K/uL (0-0.4); EOSINOPHILS % (AUTO) 2.1 % (0.0-4.0); HEMATOCRIT 26.5 % (36-48); HEMOGLOBIN 8.6 g/dL (12.0-16.0); LYMPHOCYTES # (AUTO) 0.8 K/uL (2.5-16.5); MEAN CORPUSCULAR HEMOGLOBIN 24 pg (27-31); MEAN CORPUSCULAR HGB CONC 32 g/dL (33-37); MEAN CORPUSCULAR VOLUME 73.7 fL (80-94); MONOCYTES # (AUTO) 0.4 K/uL (0.8-1.0); MONOCYTES % (AUTO) 9.4 % (1.7-9.3); NEUTROPHILS # (AUTO) 2.7 K/uL (1.8-7.7); NEUTROPHILS % (AUTO) 67.4 % (42.2-75.2); PLATELET COUNT (AUTO) 216 K/uL (140-450); RED CELL DISTRIBUTION WIDTH 17.1 % (11.6-13.7)
[2022-05-28 06:31] LABS: ANION GAP 11.8 (8-16); CARBON DIOXIDE 28.9 mmol/L (21-32); CREATININE 0.8 mg/dL (0.6-1.3); POTASSIUM 3.7 mmol/L (3.5-5.1)
[2022-05-28] MEDS: BLOOD GLUCOSE MONITORING 1 DEV DEV FS SCH ×4 (06:46→20:26)
--- NOTE | 2022-05-28 06:52 | NUR ---
PT IS STABLE. NO ACUTE THROUGHOUT THE NIGHT. NO S/SX OF DISTRESS. ALL NEEDS ATTENDED. NO COMPLAINS OF PAIN AT THIS MOMENT. ALL PRECAUTIONS IN PLACE. CALL LIGHT WITHIN REACH. WILL ENDORSE TO AM SHIFT NURSE.
--- NOTE | 2022-05-28 07:30 | NUR ---
RECEIVED PATIENT FROM [employer] PL[employer] MAINTENANCE CONSULTANT NURSE FOR CONTINUITY OF CARE. PT IS AOX4, ABLE TO MAKE NEEDS KNOWN. ON ROOM AIR AND NO RESPIRATORY DISTRESS NOTED. SKIN IS WARM, DRY, AND INTACT. IV SITE ON RIGHT UPPER ARM 18G. SALINE LOCKED. PATIENT DENIES PAIN AT THE MOMENT. PLAN OF CARE DISCUSSED. SAFETY PRECAUTIONS IN PLACE. CALL LIGHT WITHIN REACH. WILL CONTINUE TO MONITOR.
[2022-05-28 08:00] VITALS: BP 115/68
[2022-05-28] MEDS: PANTOPRAZOLE 40 MG INJ VIAL IVP SCH (09:00)
[2022-05-28] MEDS: GABAPENTIN 300 MG CAP PO SCH ×3 (09:01→17:48)
[2022-05-28] MEDS: ESCITALOPRAM 20 MG TAB PO SCH (09:01)
--- NOTE | 2022-05-28 09:05 | NUR ---
ALL SCHEDULED MEDS GIVEN. PT IS STABLE. NO DISTRESS NOTED. WILL CONTINUE TO MONITOR.
[2022-05-28] MEDS: carvediloL 6.25 MG TAB PO SCH ×2 (09:06→20:15)
[2022-05-28 12:00] VITALS: BP 100/60
--- NOTE | 2022-05-28 12:05 | NUR ---
DR. COLLINS AT BEDSIDE. DISCUSSED EGD PROCEDURE. PT VERBALIZED UNDERSTANDING AND SIGNED CONSENT FORM FOR EGD.
--- NOTE | 2022-05-28 12:15 | NUR ---
PATIENT TRANSFERRED TO OR FOR EGD PROCEDURE.
[2022-05-28] MEDS: fentaNYL citrate 0.05 MG/ML VIAL ONE ×2 (12:43→12:45)
[2022-05-28] MEDS: MIDAZOLAM 2 MG/2 ML VIAL ONE ×4 (12:43→12:50)
--- NOTE | 2022-05-28 13:25 | NUR ---
DC PLANNING: ORDER RECEIVED TO GIVE PATIENT RESOURCES FOR XARELTO, PACKET WITH NUMBER TO CALL FOR 30 DAY SUPPLY OF XARELTO GIVEN TO PATIENT AT BEDSIDE. PATIENT SLEEPING, WOKE UP LONG ENOUGH TO ACKNOWLEDGE RESOURCE, WENT BACK TO SLEEP BEFORE CM COULD DO DC PLANNING. CM WILL FOLLOW.
[2022-05-28] MEDS ORDERED: diphenhydrAMINE 50 MG/ML VIAL IVP SCH (14:15)
--- NOTE | 2022-05-28 14:15 | NUR ---
PATIENT COMPLAINED OF GENERALIZED ITCHINESS AFTER EGD. INFORMED MD AND NEW ORDERS WERE RECEIVED
[2022-05-28 16:00] VITALS: BP 99/63
--- NOTE | 2022-05-28 17:55 | NUR ---
ALL SCHEDULED MEDS GIVEN. PT IS STABLE. NO DISTRESS NOTED. WILL CONTINUE TO MONITOR.
--- NOTE | 2022-05-28 19:26 | NUR ---
ENDORSED TO DEDENTER NURSE FOR CONTINUITY OF CARE. PT IS STABLE.
[2022-05-28 20:00] VITALS: BP 103/66
--- NOTE | 2022-05-28 20:00 | NUR ---
RECEIVED REPORT FROM CHEL PARHAM RN FOR CONTINUITY OF CARE. PT IS STABLE IN BED. A%OX4 C/O GENERALIZED ITCHING AND MID STERNAL CHEST PAIN FROM PE. BP 103/66. HS MEDS GIVEN INCLUDING MSO4 2MG IVP FOR 10/10 SHARP MID STERNAL CHEST PAIN. CP=473 NO INSULIN COVERAGE NEEDED. ON RM AIR/O2. RR EVEN AND UNLABORED WITH EQUAL CHEST RISE. GI INTACT. PT'S SKIN INTACT. PT IS AMBULATORY AND CONTINENT. ALL SAFETY MEASURES IN PLACE.CALL LIGHT WITHIN REACH. WILL CONTINUE TO MONITOR.
[2022-05-28] MEDS: ATORVASTATIN 20 MG TAB PO SCH (20:16)
[2022-05-28] MEDS: diphenhydrAMINE 50 MG/ML VIAL IVP PRN (22:33)
[2022-05-29] VITALS: BP 106/68
[2022-05-29] MEDS: MORPHINE SULFATE 2 MG/ML SYR IVP PRN ×4 (02:20→16:18)
--- NOTE | 2022-05-29 02:20 | NUR ---
PT C/O PAIN IN L LOWER LOBE DUE TO PE. RECEIVED MSO4 2MG IVP AND APPLE JUICE WITH SALTINE CRACKERS REQUESTED. PT STABLE.RR EVEN WITH EQUAL CHEST RISE. ALL SAFETY MEASURES IN PLACE. CALL LIGHT WITHIN REACH. WILL CONTINUE WITH FREQ ROUNDS.
[2022-05-29 04:00] VITALS: BP 99/63
[2022-05-29] MEDS: ENOXAPARIN 120 MG/0.8 ML SYR SUBQ SCH (05:38)
[2022-05-29] MEDS: BLOOD GLUCOSE MONITORING 1 DEV DEV FS SCH ×3 (06:24→16:38)
[2022-05-29] MEDS ORDERED: LANSOPRAZOLE 30 MG CAPDR PO SCH (06:30)
--- NOTE | 2022-05-29 06:45 | NUR ---
ERWIN FROM LAB CALLED SHE WAS UNABLE TO DRAW AM LABS ON PT. WILL ENDORSE THE DRAW TO ANOTHER AMMONIA TECHNICIAN.
--- NOTE | 2022-05-29 07:05 | NUR ---
PT C/O SUB STERNAL CHEST PAIN FROM PE. 07/09 RECEIVED MSO4 2 MG IVP. STATES THIS MEDICATION IS EFFECTIVE . PAIN GOES DOWN TO A 5/10 AFTER 2 HOURS. "I WILL HAVE TO BE ON BLOOD THINNERS FOR THE LONGTERM."
--- NOTE | 2022-05-29 07:44 | NUR ---
GOT REPORT FROM THE NIGHT NURSE, PT IS AWAKE DISCUSSED PLAN OF CARE.[id number]
[2022-05-29 08:00] VITALS: BP 90/50
[2022-05-29] MEDS: GABAPENTIN 300 MG CAP PO SCH ×3 (09:04→16:18)
[2022-05-29] MEDS: carvediloL 6.25 MG TAB PO SCH (09:04)
[2022-05-29] MEDS: ESCITALOPRAM 20 MG TAB PO SCH (09:05)
[2022-05-29] MEDS: INSULIN LISPRO SLIDING SCALE 100 UNITS/ML VIAL SUBQ PRN ×2 (11:43→11:46)
[2022-05-29] MEDS ORDERED: RIVA15TA1 PO (11:44)
[2022-05-29] MEDS ORDERED: RIVA20TA PO (11:44)
[2022-05-29 12:00] VITALS: BP 117/52
[2022-05-29] MEDS: diphenhydrAMINE 50 MG/ML VIAL IVP PRN (12:15)
[2022-05-29 12:56] VITALS: BP 90/50
[2022-05-29 16:00] VITALS: BP 93/51
--- NOTE | 2022-05-29 17:42 | NUR ---
PT DISCHARGED HOME,, DISCHARGE INSTRUCTION GIVEN, IV AND ID BAND REMOVED [id number]
== END 2022-05-29 17:40 | disposition home or self-care (01) | DRG 134 ==
LOC: MED 12:32 → MTU 15:42 → MMU 05-27 18:29
PROVIDERS: ADMIT Family Medicine; ATTEND Family Medicine
PROC: 0DB78ZX Excision of Stomach, Pylorus, Via Natural or Artificial Opening Endoscopic, Diagnostic (ICD-10-PCS; principal; 2022-05-28 12:30)
DX: I26.93 Single subsegmental thrombotic pulmonary embolism without acute cor pulmonale (principal); E44.1 Mild protein-calorie malnutrition; K27.4 Chronic or unspecified peptic ulcer, site unspecified, with hemorrhage; I48.0 Paroxysmal atrial fibrillation; R04.2 Hemoptysis; D50.0 Iron deficiency anemia secondary to blood loss (chronic); I34.0 Nonrheumatic mitral (valve) insufficiency; R06.03 Acute respiratory distress; E78.00 Pure hypercholesterolemia, unspecified; E78.5 Hyperlipidemia, unspecified; E66.9 Obesity, unspecified; J45.909 Unspecified asthma, uncomplicated; I10 Essential (primary) hypertension; Z20.822 Contact with and (suspected) exposure to COVID-19; Z88.8 Allergy status to other drugs, medicaments and biological substances; Z91.041 Radiographic dye allergy status; Z79.899 Other long term (current) drug therapy; Z79.891 Long term (current) use of opiate analgesic; Z79.01 Long term (current) use of anticoagulants; Z91.19 Patient's noncompliance with other medical treatment and regimen; Z68.39 Body mass index [BMI] 39.0-39.9, adult
CPT/HCPCS: 36415; 71275; 80048; 80053; 82272; 82948; 83690; 83735; 83880; 84484; 85025; 85610; 85730; 86677; 86886; 86900; 86901; 87081; 93005; 96361; 96372; 96374; 96375; 96376; 99285; C9113; J1200; J1650; J1815; J2250; J2270; J2916; J3010; J7030; Q9967

== ENCOUNTER 2022-06-11 14:15 | Emergency (ER) | payer MEDICAID ==
[~2022-06-11] VITALS: Ht 167.6 cm; Wt 112.0 kg
[~2022-06-11 14:15] MED LIST changes: -ACET-8386 PO; -LURA20TA PO; +LURA60TA PO; -METF-346 PO; +PROP20TA29 PO; +RIVA15TA1 PO
[2022-06-11 14:22] VITALS: BP 136/79
[2022-06-11 15:11] LABS: BASOPHILS % (AUTO) 0.7 % (0.0-2.0); EOSINOPHILS % (AUTO) 0.7 % (0.0-4.0); HEMOGLOBIN 9.4 g/dL (12.0-16.0); LYMPHOCYTES % (AUTO) 21.8 % (20.5-51.1); MEAN CORPUSCULAR HEMOGLOBIN 24 pg (27-31); MEAN CORPUSCULAR HGB CONC 32 g/dL (33-37); MEAN CORPUSCULAR VOLUME 75.7 fL (80-94); MONOCYTES # (AUTO) 0.4 K/uL (0.8-1.0); MONOCYTES % (AUTO) 9.1 % (1.7-9.3); NEUTROPHILS # (AUTO) 3.2 K/uL (1.8-7.7); NEUTROPHILS % (AUTO) 67.7 % (42.2-75.2); PLATELET COUNT (AUTO) 222 K/uL (140-450); RED BLOOD CELL COUNT(AUTO) 3.96 MIL/uL (4.20-5.40); RED CELL DISTRIBUTION WIDTH 19.7 % (11.6-13.7); WHITE BLOOD COUNT (AUTO) 4.8 K/uL (4.8-10.8)
[2022-06-11 15:32] LABS: ALBUMIN 3.4 g/dL (3.4-5.0); TOTAL BILIRUBIN 0.2 mg/dL (0.0-1.0)
--- NOTE | 2022-06-11 16:00 | NUR ---
41/F PRESENTS TO ED WITH C/O COUGH, BACK AND CHEST PAIN AND SOB UPON EXERTION. PATIENT REPORTS REPEATED HX OF PE BUT STATES SHE HAS NOT BEEN ABLE TO FILL HER RX OF BLOOD THINNERS D/T INSURANCE REASONS. PATIENT DENIES N/V/D, FEVERS. PATIENT REPORTS TAKING TYLENOL FOR PAIN WITH NO RELIEF.
[2022-06-11 16:13] VITALS: BP 110/72
--- NOTE | 2022-06-11 16:14 | NUR ---
Patient discharged with v/s stable. Written and verbal after care instructions ABOUT CHEST PAIN AND SHORTNESS OF BREATH given and explained. Patient verbalized understanding. Ambulatory with steady gait. All questions addressed prior to discharge. Advised to follow up with PMD.
== END 2022-06-11 16:14 | disposition home or self-care (01) ==
LOC: MED 14:15
DX: R07.9 Chest pain, unspecified (principal); R06.02 Shortness of breath; R04.2 Hemoptysis; J45.909 Unspecified asthma, uncomplicated; I48.91 Unspecified atrial fibrillation; E11.9 Type 2 diabetes mellitus without complications; I10 Essential (primary) hypertension; Z90.49 Acquired absence of other specified parts of digestive tract; Z98.890 Other specified postprocedural states; Z79.01 Long term (current) use of anticoagulants; Z79.899 Other long term (current) drug therapy; Z88.8 Allergy status to other drugs, medicaments and biological substances; Z88.6 Allergy status to analgesic agent
CPT/HCPCS: 36415; 71045; 80053; 83880; 84484; 85025; 85379; 93005; 99285

== ENCOUNTER 2022-06-27 10:54 | Emergency (ER) | payer MEDICAID ==
[~2022-06-27] VITALS: Ht 167.6 cm; Wt 110.7 kg
[2022-06-27 11:00] VITALS: BP 116/69
--- NOTE | 2022-06-27 11:04 | NUR ---
PT AMBULATED TO BED 02.
--- NOTE | 2022-06-27 11:09 | NUR ---
42/f walked in c/o sharp sternal chest pain radiating to left arm onset 4days ago. pt states she had a syncopal episode today. denies trauma or injury. pt presents with a 20g iv to the right arm. 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 aaox4, ambulatory, ekg at bedside. ALLERGY: IODINE, TORDAL PMH: HX PULMONARY EMBOLISM, MITRAL VALVE REGURGITATION, AFIB
[2022-06-27 11:10] VITALS: BP 128/75
--- NOTE | 2022-06-27 11:54 | NUR ---
lab drawn, xr done
[2022-06-27] MEDS: ACETAMINOPHEN EXTRA STRENGTH 500 MG TAB PO ONE ×2 (12:01→12:04)
--- NOTE | 2022-06-27 12:17 | NUR ---
PT STATED "IM NOT GOING TO WAIT ANYMORE". PATIENT ELOPED FROM FACILITY. DISCHARGE INSTRUCTIONS NOT GIVEN TO PATIENT. DR. AUGUST NOTIFIED.
[2022-06-27 12:19] LABS: BASOPHILS % (AUTO) 0.1 % (0.0-2.0); EOSINOPHILS % (AUTO) 0.3 % (0.0-4.0); HEMATOCRIT 25.4 % (36-48); LYMPHOCYTES # (AUTO) 0.6 K/uL (2.5-16.5); LYMPHOCYTES % (AUTO) 14.2 % (20.5-51.1); MEAN CORPUSCULAR HEMOGLOBIN 24 pg (27-31); MEAN CORPUSCULAR HGB CONC 31 g/dL (33-37); MEAN CORPUSCULAR VOLUME 74.8 fL (80-94); MONOCYTES # (AUTO) 0.3 K/uL (0.8-1.0); MONOCYTES % (AUTO) 8.2 % (1.7-9.3); NEUTROPHILS # (AUTO) 3.2 K/uL (1.8-7.7); NEUTROPHILS % (AUTO) 77.2 % (42.2-75.2); PLATELET COUNT (AUTO) 256 K/uL (140-450); RED BLOOD CELL COUNT(AUTO) 3.39 MIL/uL (4.20-5.40); RED CELL DISTRIBUTION WIDTH 20.1 % (11.6-13.7); WHITE BLOOD COUNT (AUTO) 4.2 K/uL (4.8-10.8)
[2022-06-27 12:37] LABS: ALBUMIN 2.7 g/dL (3.4-5.0); ANION GAP 11.6 (8-16); CARBON DIOXIDE 24.9 mmol/L (21-32); CHLORIDE 109 mmol/L (98-107); CREATININE 0.8 mg/dL (0.6-1.3); GFR ARICAN-AMERICAN 102 mL/min (>90); GLUCOSE 181 mg/dL (74-106); POTASSIUM 3.5 mmol/L (3.5-5.1); SODIUM SERUM 142 mmol/L (136-145); TOTAL BILIRUBIN 0.2 mg/dL (0.0-1.0); UREA NITROGEN, BLOOD 10 mg/dL (7-18)
--- NOTE | 2022-06-27 13:29 | NUR ---
PT ARRIVED TO ED WITH IV ALREADY IN PLACE, PT ELOPED FROM FACILITY. CALLED [facility], SPOKE WITH BENITO AT DISPATCH TO NOTIFY.
== END 2022-06-27 12:17 | disposition left against medical advice (07) ==
LOC: MED 10:54
DX: R07.9 Chest pain, unspecified (principal); J45.909 Unspecified asthma, uncomplicated; E11.9 Type 2 diabetes mellitus without complications; I10 Essential (primary) hypertension; Z88.8 Allergy status to other drugs, medicaments and biological substances; Z79.899 Other long term (current) drug therapy
CPT/HCPCS: 36415; 71045; 80053; 81002; 81025; 84484; 85025; 85379; 93005; 99285; Q0092

== ENCOUNTER 2022-07-15 22:00 | Emergency (ER) | payer MEDICAID ==
[~2022-07-15] VITALS: Ht 167.6 cm; Wt 107.2 kg
[2022-07-15 22:12] VITALS: BP 111/75
--- NOTE | 2022-07-15 22:19 | NUR ---
WALKED IN C/O EPIGASTRIC PAIN THAT RADIATES TO THE LUQ, AND CHEST PAIN THAT RADAITES TO THE BACK WITH INSPIRATION SINCE YESTERDAY. +VOMITING WITH STREAKS OF BLOOD/DIARRHEA. +CHILLS, FEELS DIAPHORETIC, +PALPIATIONS. NOT ON ANY BLOOD THINNERS X3 MONTHS D/T INSURANCE. PT STATES THIS CP FEELS LIKE THE LAST TIME SHE HAD A PE. PMH PULMONARY EMBOLISM, AFIB, MITRAL VALVE REGURGITATION
--- NOTE | 2022-07-15 22:22 | NUR ---
PT TO BED 12
[2022-07-15] MEDS ORDERED: MORPHINE SULFATE 4 MG/ML SYR IVP ONE (23:35)
[2022-07-15] MEDS ORDERED: NACL 0.9% 1,000 ML IV ONE (23:35)
[2022-07-15] MEDS ORDERED: ASPIRIN 325 MG TAB PO ONE (23:35)
[2022-07-15] MEDS ORDERED: ONDANSETRON 4 MG/2 ML VIAL IVP ONE (23:35)
[2022-07-15 23:56] LABS: BASOPHILS % (AUTO) 0.2 % (0.0-2.0); EOSINOPHILS % (AUTO) 0.2 % (0.0-4.0); HEMATOCRIT 27.5 % (36-48); HEMOGLOBIN 8.7 g/dL (12.0-16.0); LYMPHOCYTES # (AUTO) 0.2 K/uL (2.5-16.5); LYMPHOCYTES % (AUTO) 6.1 % (20.5-51.1); MEAN CORPUSCULAR HEMOGLOBIN 23 pg (27-31); MEAN CORPUSCULAR HGB CONC 32 g/dL (33-37); MEAN CORPUSCULAR VOLUME 73.6 fL (80-94); MONOCYTES # (AUTO) 0.1 K/uL (0.8-1.0); MONOCYTES % (AUTO) 1.6 % (1.7-9.3); NEUTROPHILS # (AUTO) 3.7 K/uL (1.8-7.7); NEUTROPHILS % (AUTO) 91.9 % (42.2-75.2); PLATELET COUNT (AUTO) 226 K/uL (140-450); RED BLOOD CELL COUNT(AUTO) 3.73 MIL/uL (4.20-5.40); RED CELL DISTRIBUTION WIDTH 21.2 % (11.6-13.7)
--- NOTE | 2022-07-16 00:16 | NUR ---
Ultrasound at bedside.
--- NOTE | 2022-07-16 00:39 | NUR ---
ADRIAN VERDUZCO ATTEMPTED TO DO AN ULTRASOUND IV 2X. NO SUCCESS AT THIS TIME. WILL GIVE PT A BREAK.
[2022-07-16 00:43] LABS: ALBUMIN 3.2 g/dL (3.4-5.0); ANION GAP 16.5 (8-16); ASPARTATE AMINOTRANSFERASE 35 U/L (15-37); CHLORIDE 105 mmol/L (98-107); CREATININE 0.9 mg/dL (0.6-1.3); GFR ARICAN-AMERICAN 89 mL/min (>90); GLUCOSE 182 mg/dL (74-106); POTASSIUM 3.5 mmol/L (3.5-5.1); SODIUM SERUM 140 mmol/L (136-145); TOTAL BILIRUBIN 0.5 mg/dL (0.0-1.0); UREA NITROGEN, BLOOD 5 mg/dL (7-18)
--- NOTE | 2022-07-16 02:15 | NUR ---
PATIENT STATED THAT SHE USUALLY DOES ANGIO , BUT IS PRE-MEDICATED WITH BENADRYL 70. MD MADE AWARE. ORDERS CARRIED OUT
[2022-07-16] MEDS ORDERED: diphenhydrAMINE 50 MG/ML VIAL ONE (02:28)
[2022-07-16] MEDS ORDERED: methylPREDNISolone SS 125 MG/2 ML VIAL ONE (02:29)
[2022-07-16] MEDS ORDERED: diphenhydrAMINE 50 MG/ML VIAL IVP ONE (02:30)
[2022-07-16] MEDS ORDERED: methylPREDNISolone SS 125 MG/2 ML VIAL IVP ONE (02:30)
--- NOTE | 2022-07-16 02:46 | NUR ---
PT TAKEN TO CT
--- NOTE | 2022-07-16 03:01 | NUR ---
PT RETURN FROM CT
[2022-07-16] MEDS ORDERED: MORPHINE SULFATE 4 MG/ML SYR ONE (03:10)
[2022-07-16] MEDS ORDERED: ONDANSETRON 4 MG/2 ML VIAL ONE (03:30)
[2022-07-16] MEDS ORDERED: ASPIRIN 325 MG TAB ONE (03:30)
[2022-07-16 03:47] LABS: APPEARANCE,URINE CLEAR (CLEAR); BILIRUBIN,URINE NEGATIVE (NEGATIVE); BLOOD, URINE NEGATIVE (NEGATIVE); COLOR,URINE YELLOW (YELLOW); LEUKOCYTE ESTERASE ,URINE NEGATIVE (NEGATIVE); NITRITE, URINE POSITIVE (NEGATIVE); PH,URINE 6.5 (5.0-9.0); UGLUCOSE NEGATIVE (NEGATIVE)
[2022-07-16 03:54] LABS: RBC,URINE 0-5 /HPF (0-5); WBC,URINE 0-5 /HPF (0-5)
--- NOTE | 2022-07-16 04:26 | NUR ---
PATIENT C/O PAIN 06/09 TO THE ABD. MADE AWARE. ORDERED 1000MG ACETAMINOPHEN PO.
--- NOTE | 2022-07-16 04:29 | NUR ---
SIMBA REFUSED TYLENOL. PATIENT STATED THAT THE TYLENOL WAS NOT GOING TO TAKE AWAY THE PAIN. MD MADE AWARE.
[2022-07-16] MEDS ORDERED: ACETAMINOPHEN EXTRA STRENGTH 500 MG TAB PO ONE (04:35)
--- NOTE | 2022-07-16 04:35 | NUR ---
ERMD AT BEDSIDE
[2022-07-16] MEDS ORDERED: cefTRIAXone 1,000 MG VIAL ONE (05:49)
[2022-07-16] MEDS ORDERED: PANT40PK PO (06:02)
[2022-07-16] MEDS ORDERED: CEPH-588 PO (06:19)
[2022-07-16] MEDS ORDERED: cefTRIAXone 1,000 MG in LIDOCAINE MPF 1% 2.1 ML IM ONE (06:20)
[2022-07-16] MEDS ORDERED: LIDOCAINE MPF 1% 5 ML ONE (06:25)
--- NOTE | 2022-07-16 06:45 | NUR ---
ERMD WILIAN AT BEDSIDE TO REMOVE CENTRAL LINE. ASSISTED ERMD. ONCE TAKEN OUT 4X4 DRESSING PLACED. BLEEDING CONTROLLED.
[2022-07-16 07:23] VITALS: BP 112/80
--- NOTE | 2022-07-16 07:24 | NUR ---
Patient discharged with v/s stable. Written and verbal after care instructions given and explained. Patient alert, oriented and verbalized understanding of instructions. Ambulatory with steady gait. All questions addressed prior to discharge. ID band removed. Patient advised to follow up with PMD. Rx of KEFLEX AND PROTONIX given. Patient educated on indication of medication including possible reaction and side effects. Opportunity to ask questions provided and answered.
== END 2022-07-16 07:23 | disposition home or self-care (01) ==
LOC: MED 22:00
DX: R07.9 Chest pain, unspecified (principal); R10.13 Epigastric pain; R11.2 Nausea with vomiting, unspecified; J45.909 Unspecified asthma, uncomplicated; I10 Essential (primary) hypertension; Z88.8 Allergy status to other drugs, medicaments and biological substances; Z79.899 Other long term (current) drug therapy
CPT/HCPCS: 36415; 71045; 71275; 74174; 76705; 80053; 81001; 81025; 83605; 84484; 85025; 87040; 87086; 93005; 96361; 96372; 96374; 96375; 99285; J0696; J1200; J2001; J2270; J2405; J2930; J7030; Q0092; Q9967; 83690

== ENCOUNTER 2022-07-27 20:49 | Emergency (ER) | payer OTHER, MEDICAID ==
[~2022-07-27] VITALS: Ht 167.6 cm; Wt 109.8 kg
[~2022-07-27 20:49] MED LIST changes: +CEPH-588 PO; +PANT40PK PO
[2022-07-27 21:08] VITALS: BP 124/87
--- NOTE | 2022-07-27 21:18 | NUR ---
PATIENT AMBULATED TO THE LOBBY IN STABLE CONDITION
--- NOTE | 2022-07-27 21:40 | NUR ---
pt to bed 7
[2022-07-27 22:15] LABS: BASOPHILS % (AUTO) 0.2 % (0.0-2.0); HEMATOCRIT 27.4 % (36-48); HEMOGLOBIN 8.8 g/dL (12.0-16.0); LYMPHOCYTES # (AUTO) 0.2 K/uL (2.5-16.5); LYMPHOCYTES % (AUTO) 3.6 % (20.5-51.1); MEAN CORPUSCULAR HEMOGLOBIN 24 pg (27-31); MEAN CORPUSCULAR HGB CONC 32 g/dL (33-37); MEAN CORPUSCULAR VOLUME 73.2 fL (80-94); MONOCYTES # (AUTO) 0.1 K/uL (0.8-1.0); MONOCYTES % (AUTO) 1.4 % (1.7-9.3); NEUTROPHILS # (AUTO) 4.6 K/uL (1.8-7.7); NEUTROPHILS % (AUTO) 94.8 % (42.2-75.2); PLATELET COUNT (AUTO) 259 K/uL (140-450); RED BLOOD CELL COUNT(AUTO) 3.75 MIL/uL (4.20-5.40); RED CELL DISTRIBUTION WIDTH 20.7 % (11.6-13.7); WHITE BLOOD COUNT (AUTO) 4.8 K/uL (4.8-10.8)
--- NOTE | 2022-07-27 22:25 | NUR ---
Patient resting in bed, A/Ox4, chest rise and fall symmetrical, no s/s of distress. Patient stated "chest pain is 10/10." Dr. Haynes verbally informed. Dr. Haynes verbalized understanding and stated he will see patient soon.
--- NOTE | 2022-07-27 22:29 | NUR ---
NOLAN GLASER AT BEDSIDE EXAMINING PT
[2022-07-27 22:37] LABS: ALBUMIN 3.5 g/dL (3.4-5.0); ANION GAP 17.3 (8-16); CARBON DIOXIDE 23.7 mmol/L (21-32); CREATININE 0.8 mg/dL (0.6-1.3); TOTAL BILIRUBIN 0.2 mg/dL (0.0-1.0)
[2022-07-27] MEDS ORDERED: MORPHINE SULFATE 4 MG/ML SYR IVP ONE (22:40)
[2022-07-27] MEDS ORDERED: diphenhydrAMINE 50 MG/ML VIAL IVP ONE (22:45)
[2022-07-27 22:53] LABS: LIPASE 112 U/L (73-393)
--- NOTE | 2022-07-27 23:30 | NUR ---
PT TO CT VIA WHEELCHAIR
[2022-07-28] MEDS ORDERED: MORPHINE SULFATE 4 MG/ML SYR IVP ONE (00:20)
--- NOTE | 2022-07-28 00:45 | NUR ---
Patient lying in bed, A/Ox4, chest rise and fall symmetrical, no c/o pain or s/s of discomfort.
[2022-07-28] MEDS ORDERED: DIPH25TA53 PO (00:52)
[2022-07-28] MEDS ORDERED: LID5T TP (00:52)
[2022-07-28] MEDS ORDERED: ACET-8386 PO (00:52)
[2022-07-28 01:38] VITALS: BP 125/83
== END 2022-07-28 01:30 | disposition home or self-care (01) ==
LOC: MED 20:49
DX: S39.91XA Unspecified injury of abdomen, initial encounter (principal); R07.89 Other chest pain; I10 Essential (primary) hypertension; J45.909 Unspecified asthma, uncomplicated; I25.10 Atherosclerotic heart disease of native coronary artery without angina pectoris; Z91.040 Latex allergy status; Z79.1 Long term (current) use of non-steroidal anti-inflammatories (NSAID); Z79.899 Other long term (current) drug therapy; W18.30XA Fall on same level, unspecified, initial encounter; Y93.89 Activity, other specified; Y92.89 Other specified places as the place of occurrence of the external cause; Y99.8 Other external cause status
CPT/HCPCS: 36415; 71045; 71260; 74177; 80053; 83690; 83880; 84484; 85025; 85379; 96374; 96375; 96376; 99285; J1200; J2270; Q0092; Q9967

== ENCOUNTER 2022-08-22 10:07 | Emergency (ER) | payer OTHER, MEDICAID ==
[~2022-08-22] VITALS: Ht 167.6 cm; Wt 107.0 kg
[~2022-08-22 10:07] MED LIST changes: +ACET-8386 PO; +DIPH25TA53 PO; +LID5T TP
[2022-08-22 10:18] VITALS: BP 117/86
--- NOTE | 2022-08-22 10:24 | NUR ---
Patient ambulated to bed 8.
--- NOTE | 2022-08-22 10:42 | NUR ---
Dr. Matta evaluating patient at bedside.
--- NOTE | 2022-08-22 11:02 | NUR ---
42 y/o female bib self with c/o midsternal chest pain x today. Patient also had a syncopal episode today at work. Patient is unsure if she hit her head. Patient reports 8/10 chest pain. Medical History: Pulmonary Embolism, AFIB, Mitral Valve Regurgitation NKDA
--- NOTE | 2022-08-22 11:13 | NUR ---
X-Ray at bedside.
--- NOTE | 2022-08-22 11:17 | NUR ---
Lab at bedside.
[2022-08-22] MEDS ORDERED: ONDANSETRON 4 MG/2 ML VIAL IVP ONE (11:25)
[2022-08-22] MEDS ORDERED: MORPHINE SULFATE 2 MG/ML SYR IVP ONE (11:25)
[2022-08-22] MEDS ORDERED: ASPIRIN 81 MG TAB.CHEW PO ONE (11:25)
[2022-08-22] MEDS ORDERED: MORPHINE SULFATE 4 MG/ML SYR IM ONE (11:35)
[2022-08-22] MEDS ORDERED: ONDANSETRON 4 MG ODT PO ONE (11:35)
[2022-08-22 11:44] LABS: BASOPHILS % (AUTO) 0.1 % (0.0-2.0); HEMATOCRIT 26.7 % (36-48); HEMOGLOBIN 8.4 g/dL (12.0-16.0); LYMPHOCYTES # (AUTO) 0.3 K/uL (2.5-16.5); MEAN CORPUSCULAR HEMOGLOBIN 23 pg (27-31); MEAN CORPUSCULAR HGB CONC 31 g/dL (33-37); MEAN CORPUSCULAR VOLUME 73.6 fL (80-94); MONOCYTES # (AUTO) 0.1 K/uL (0.8-1.0); MONOCYTES % (AUTO) 3.4 % (1.7-9.3); NEUTROPHILS # (AUTO) 3.4 K/uL (1.8-7.7); NEUTROPHILS % (AUTO) 89.5 % (42.2-75.2); PLATELET COUNT (AUTO) 173 K/uL (140-450); PROTHROMBIN TIME 10.3 secs (10.8-13.4); RED BLOOD CELL COUNT(AUTO) 3.62 MIL/uL (4.20-5.40); RED CELL DISTRIBUTION WIDTH 20.6 % (11.6-13.7); WHITE BLOOD COUNT (AUTO) 3.8 K/uL (4.8-10.8)
[2022-08-22 11:45] LABS: ALBUMIN 3.2 g/dL (3.4-5.0); CARBON DIOXIDE 23.9 mmol/L (21-32); CREATININE 0.8 mg/dL (0.6-1.3); POTASSIUM 3.9 mmol/L (3.5-5.1); TOTAL BILIRUBIN 0.2 mg/dL (0.0-1.0)
--- NOTE | 2022-08-22 12:35 | NUR ---
Dr. Matta re-evaluating patient at bedside.
[2022-08-22] MEDS ORDERED: OMEP20TA56 PO (14:34)
[2022-08-22] MEDS ORDERED: ESCI5TAB PO (14:34)
--- NOTE | 2022-08-22 14:35 | NUR ---
med rec complete.
--- NOTE | 2022-08-22 15:59 | NUR ---
[facility] BEDSIDE TO TRANSPORT PATIENT TO [facility]
--- NOTE | 2022-08-22 16:03 | NUR ---
Attempted to give report, no answer.
[2022-08-22 16:15] VITALS: BP 105/73
--- NOTE | 2022-08-22 16:15 | NUR ---
Patient to be transferred to [facility]. Is being transferred due to Insurance. Receiving facility has accepting physician and available space. ER physician has signed transfer form. Patient or responsible green party has agreed to transfer and signed form. Patient belongings inventoried and will be sent with patient. Copy of nursing notes, lab reports, EKG, Physicians Orders and X-rays to be sent with patient. Report called to MAURIZIO Fuentes at receiving facility. ambulance service has been called for transfer. ETA is now.
--- NOTE | 2022-08-22 16:29 | NUR ---
Called and spoke to MAURIZIO Fuentes at [facility] to give report.
--- NOTE | 2022-08-22 16:41 | NUR ---
The patient's care was reviewed and supervised by Amina Schilling RN.
== END 2022-08-22 16:15 | disposition short-term general hospital (02) ==
LOC: MED 10:07
DX: S09.90XA Unspecified injury of head, initial encounter (principal); Z20.822 Contact with and (suspected) exposure to COVID-19; R55 Syncope and collapse; R07.9 Chest pain, unspecified; I26.99 Other pulmonary embolism without acute cor pulmonale; I25.10 Atherosclerotic heart disease of native coronary artery without angina pectoris; I10 Essential (primary) hypertension; Z79.1 Long term (current) use of non-steroidal anti-inflammatories (NSAID); Z91.041 Radiographic dye allergy status; Z79.899 Other long term (current) drug therapy; X58.XXXA Exposure to other specified factors, initial encounter; Y93.89 Activity, other specified; Y92.89 Other specified places as the place of occurrence of the external cause; Y99.8 Other external cause status
CPT/HCPCS: 36415; 71045; 80053; 81002; 81025; 83880; 84484; 85025; 85610; 85730; 87426; 96372; 99285; J2270; Q0092; Q0162; 93005; J2405

== ENCOUNTER 2022-10-06 20:18 | Emergency (ER) | payer OTHER, MEDICAID ==
[~2022-10-06] VITALS: Ht 167.6 cm; Wt 108.9 kg
[~2022-10-06 20:18] MED LIST changes: -ACET-8386 PO; -ATOR10TA PO; -CEPH-588 PO; -DIPH25TA53 PO; -ESCI10TA PO; +ESCI5TAB PO; -LID5T TP; -OMEP20EC11 PO; +OMEP20TA56 PO; -ONDA8TAB87 PO; -PROP20TA29 PO; -RIVA15TA1 PO; -RIVA20TA PO
[2022-10-06 20:30] VITALS: BP 126/65
--- NOTE | 2022-10-06 20:33 | NUR ---
TO LOBBY A/W BED AMBULATORY
--- NOTE | 2022-10-06 20:57 | NUR ---
CODE BRAIN INITATED PER
--- NOTE | 2022-10-06 21:05 | NUR ---
PT TO BED 11
[2022-10-06] MEDS ORDERED: diphenhydrAMINE 50 MG/ML VIAL ONE (21:19)
[2022-10-06 21:20] LABS: BASOPHILS % (AUTO) 0.4 % (0.0-2.0); EOSINOPHILS % (AUTO) 0.4 % (0.0-4.0); HEMATOCRIT 30.3 % (36-48); HEMOGLOBIN 9.5 g/dL (12.0-16.0); LYMPHOCYTES # (AUTO) 0.9 K/uL (2.5-16.5); LYMPHOCYTES % (AUTO) 20.4 % (20.5-51.1); MEAN CORPUSCULAR HEMOGLOBIN 23 pg (27-31); MEAN CORPUSCULAR HGB CONC 31 g/dL (33-37); MEAN CORPUSCULAR VOLUME 73.8 fL (80-94); MONOCYTES # (AUTO) 0.5 K/uL (0.8-1.0); MONOCYTES % (AUTO) 11.8 % (1.7-9.3); NEUTROPHILS # (AUTO) 2.9 K/uL (1.8-7.7); PLATELET COUNT (AUTO) 237 K/uL (140-450); RED BLOOD CELL COUNT(AUTO) 4.11 MIL/uL (4.20-5.40); RED CELL DISTRIBUTION WIDTH 20.4 % (11.6-13.7); WHITE BLOOD COUNT (AUTO) 4.3 K/uL (4.8-10.8)
--- NOTE | 2022-10-06 21:23 | NUR ---
PT TAKEN TO CT
--- NOTE | 2022-10-06 21:23 | NUR ---
TO CT SCAN WITH PT. WHILE IN CT PT ABLE TO USE AND CATCH HERSELF WITH RIGHT ARM WHILE MOVING HER OVER TO THE CT TABLE.
--- NOTE | 2022-10-06 21:42 | NUR ---
PT RETURN FROM CT
[2022-10-06 21:45] LABS: PROTHROMBIN TIME 10.1 secs (10.8-13.4)
[2022-10-06 21:47] LABS: ALBUMIN 5.8 g/dL (3.4-5.0); ANION GAP 13.7 (8-16); ASPARTATE AMINOTRANSFERASE 17 U/L (15-37); CARBON DIOXIDE 28.1 mmol/L (21-32); CHLORIDE 104 mmol/L (98-107); CREATININE 0.9 mg/dL (0.6-1.3); GFR ARICAN-AMERICAN 89 mL/min (>90); GLUCOSE 128 mg/dL (74-106); POTASSIUM 3.8 mmol/L (3.5-5.1); SODIUM SERUM 142 mmol/L (136-145); TOTAL BILIRUBIN 0.2 mg/dL (0.0-1.0); UREA NITROGEN, BLOOD 9 mg/dL (7-18)
[2022-10-06] MEDS ORDERED: ACETAMINOPHEN EXTRA STRENGTH 500 MG TAB PO ONE (22:10)
--- NOTE | 2022-10-06 22:27 | NUR ---
PT REFUSED TYLENOL ORDERED FOR PAIN. PT STATES SHE TOOK 1000MG BEFORE COMING TO HOSPITAL. PT REQUESTING STRONGER MEDICATION. DR. KLINE AWARE.
--- NOTE | 2022-10-06 22:55 | NUR ---
PT UPDATED ON POC AND TRANSFER TO [facility]. PT REFUSING TO GO TO [facility]. DR. KHAN AT BEDSIDE WITH PT.
[2022-10-06 23:00] VITALS: BP 126/72
[2022-10-06] MEDS ORDERED: traMADol 50 MG TAB PO ONE (23:15)
--- NOTE | 2022-10-06 23:21 | NUR ---
Patient does not wish to proceed with medical care recommended by DR. KHAN AND DR. KLINE. Patient given information related to possible complications, up to and including , which could occur as a result of leaving hospital at this time. Patient verbalizes understanding of risks involved leaving against medical advice. Patient has signed AMA form.
== END 2022-10-06 23:21 | disposition left against medical advice (07) ==
LOC: MED 21:08
DX: R53.1 Weakness (principal); Z20.822 Contact with and (suspected) exposure to COVID-19
CPT/HCPCS: 36415; 70450; 70496; 70498; 71045; 80053; 84484; 85025; 85610; 85730; 86886; 86900; 86901; 87426; 93005; 99291; J1200; Q9967

== ENCOUNTER 2022-11-20 03:43 | Emergency (ER) | payer MEDICAID, OTHER ==
[~2022-11-20] VITALS: Ht 167.6 cm; Wt 106.2 kg
[2022-11-20 04:24] VITALS: BP 130/82
--- NOTE | 2022-11-20 04:47 | NUR ---
PATIENT ESCORTED BACK TO LOBBY IN STABLE CONDITION
--- NOTE | 2022-11-20 06:10 | NUR ---
PT TO CHAIR C
--- NOTE | 2022-11-20 06:20 | NUR ---
PT TO CT VIA GUILLAUME
--- NOTE | 2022-11-20 06:40 | NUR ---
PT RETURNED FROM CT.
[2022-11-20] MEDS ORDERED: MORPHINE SULFATE 2 MG/ML SYR IVP ONE ×2 (07:20→11:15)
[2022-11-20] MEDS ORDERED: ONDANSETRON 4 MG/2 ML VIAL IVP ONE (07:20)
--- NOTE | 2022-11-20 07:50 | NUR ---
patient moved to bed 7
--- NOTE | 2022-11-20 08:40 | NUR ---
42YO FEMALE PT C/O SEIZURES . REPORTS X7 SEIZURES SINCE/AFTER [facility] ON SATURDAY. STATES RECENTLY BEING DX SEIZURES AFTER FIRST EPISODE 3 WEEKS AGO , CURRENTLY TAKING KEPPRA. NOTES N/V+blood, BLURRY VISION , NUMBING AND WEAKNESS IN R ARM. DENIES CHEST PAIN, SOB, FEVER OR CHILLS. PT AAOX4, AMB W/ STEADY GAIT. SPEAKING IN CLEAR FULL SENTENCES. 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 BED AT LOWEST POSITION, BED RAILS UPX2. SEIZURE PADS IN PLACE. HX: ASTHMA, HTN , MITRAL REGURGITATION, AFIB, CARDIOMEGALY, PULMONARY EMBOLISM ALLERGIES: IODINE , TORADOL
--- NOTE | 2022-11-20 08:49 | NUR ---
LAB AT BEDSIDE
[2022-11-20] MEDS ORDERED: LORazepam 2 MG/ML VIAL ONE (08:55)
--- NOTE | 2022-11-20 08:55 | NUR ---
pt w/ 10 sec seizure. eye roll and body shakes noted. -incontinence-oral trauma. MD MAHMOOD AWARE AND AT BEDSIDE.
[2022-11-20] MEDS ORDERED: LORazepam 2 MG/ML VIAL IVP ONE (09:00)
--- NOTE | 2022-11-20 11:29 | NUR ---
pt swabbed for covid(josette/novel) walked and handed to lab
--- NOTE | 2022-11-20 13:51 | NUR ---
CALL RECEIVED FROM MAURIZIO LARSON. PT RECOMMENDED FOR MIDLINE>PICCLINE. ETA 15MIN.
--- NOTE | 2022-11-20 14:09 | NUR ---
MIDLINE NURSE AT BEDSIDE
--- NOTE | 2022-11-20 14:34 | NUR ---
pt w/ new headache pain onset. MADE AWARE
[2022-11-20 14:35] VITALS: BP 129/78
[2022-11-20 15:02] LABS: BASOPHILS % (AUTO) 0.6 % (0.0-2.0); EOSINOPHILS % (AUTO) 0.2 % (0.0-4.0); HEMATOCRIT 28.5 % (36-48); HEMOGLOBIN 9.1 g/dL (12.0-16.0); LYMPHOCYTES # (AUTO) 0.9 K/uL (2.5-16.5); LYMPHOCYTES % (AUTO) 17.7 % (20.5-51.1); MEAN CORPUSCULAR HEMOGLOBIN 23 pg (27-31); MEAN CORPUSCULAR HGB CONC 32 g/dL (33-37); MEAN CORPUSCULAR VOLUME 72.6 fL (80-94); MONOCYTES # (AUTO) 0.7 K/uL (0.8-1.0); MONOCYTES % (AUTO) 13.3 % (1.7-9.3); NEUTROPHILS # (AUTO) 3.6 K/uL (1.8-7.7); NEUTROPHILS % (AUTO) 68.2 % (42.2-75.2); PLATELET COUNT (AUTO) 222 K/uL (140-450); RED BLOOD CELL COUNT(AUTO) 3.93 MIL/uL (4.20-5.40); RED CELL DISTRIBUTION WIDTH 18.6 % (11.6-13.7); WHITE BLOOD COUNT (AUTO) 5.2 K/uL (4.8-10.8)
[2022-11-20 15:22] LABS: PROTHROMBIN TIME 10.4 secs (10.8-13.4)
[2022-11-20] MEDS ORDERED: ACETAMINOPHEN EXTRA STRENGTH 500 MG TAB PO ONE (15:25)
[2022-11-20 15:31] LABS: CARBON DIOXIDE 25.6 mmol/L (21-32); CHLORIDE 105 mmol/L (98-107); POTASSIUM 3.3 mmol/L (3.5-5.1); SODIUM SERUM 139 mmol/L (136-145)
[2022-11-20 15:32] LABS: ALBUMIN 3.7 g/dL (3.4-5.0); ANION GAP 11.7 (8-16); ASPARTATE AMINOTRANSFERASE 16 U/L (15-37); CREATININE 0.7 mg/dL (0.6-1.3); GFR ARICAN-AMERICAN 119 mL/min (>90); GLUCOSE 115 mg/dL (74-106); TOTAL BILIRUBIN 0.4 mg/dL (0.0-1.0); UREA NITROGEN, BLOOD 7 mg/dL (7-18)
[2022-11-20 15:42] LABS: BILIRUBIN,URINE NEGATIVE (NEGATIVE); BLOOD, URINE NEGATIVE (NEGATIVE); COLOR,URINE YELLOW (YELLOW); LEUKOCYTE ESTERASE ,URINE 1+ (NEGATIVE); NITRITE, URINE POSITIVE (NEGATIVE); PH,URINE 6.5 (5.0-9.0); UGLUCOSE NEGATIVE (NEGATIVE)
--- NOTE | 2022-11-20 15:55 | NUR ---
LORENA LAY CALLED TO GIVE REPORT. NO ANSWER
--- NOTE | 2022-11-20 15:57 | NUR ---
[facility] BEDSIDE FOR TRANSPORT TO [facility]
--- NOTE | 2022-11-20 16:06 | NUR ---
REPORT GIVEN TO SANTIAGO STEVEN. MADE AWARE OF PT TX AND ETA
--- NOTE | 2022-11-20 16:11 | NUR ---
Patient to be transferred to HIGHER LEVEL OF CARE. Is being transferred due to [facility] Receiving facility has accepting physician and available space. ER physician has signed transfer form. Patient or responsible constitution party has agreed to transfer and signed form. Patient belongings inventoried and will be sent with patient. Copy of nursing notes, lab reports, EKG, Physicians Orders to be sent with patient. Report called to SANTIAGO STEVEN at receiving facility. [facility] ambulance service AT BEDSIDE. ETA TO FACILITY <2HRS.
--- NOTE | 2022-11-20 16:15 | NUR ---
PT TX VIA GUILLAUME.
[2022-11-20 16:19] LABS: APPEARANCE,URINE HAZY (CLEAR)
[2022-11-20 16:25] LABS: RBC,URINE NONE SEEN /HPF (0-5); YEAST,URINE Few /HPF (None Seen)
--- NOTE | 2022-11-20 16:30 | NUR ---
The patient's care was reviewed and supervised by Amina Schilling RN.
== END 2022-11-20 16:11 | disposition short-term general hospital (02) ==
LOC: MED 03:43
DX: S09.90XA Unspecified injury of head, initial encounter (principal); Z20.822 Contact with and (suspected) exposure to COVID-19; R56.9 Unspecified convulsions; G81.91 Hemiplegia, unspecified affecting right dominant side; I10 Essential (primary) hypertension; I25.10 Atherosclerotic heart disease of native coronary artery without angina pectoris; Z88.1 Allergy status to other antibiotic agents; Z91.040 Latex allergy status; J45.909 Unspecified asthma, uncomplicated; F17.200 Nicotine dependence, unspecified, uncomplicated; Z79.01 Long term (current) use of anticoagulants; Z79.899 Other long term (current) drug therapy; Z90.49 Acquired absence of other specified parts of digestive tract; Z98.890 Other specified postprocedural states; Y04.8XXA Assault by other bodily force, initial encounter; Y93.89 Activity, other specified; Y92.89 Other specified places as the place of occurrence of the external cause; Y99.8 Other external cause status
CPT/HCPCS: 36415; 70450; 71045; 80053; 81001; 81025; 84484; 85025; 85610; 85730; 87086; 87426; 87635; 96374; 96375; 96376; 99291; C9803; J2060; J2270; J2405; Q0092

== ENCOUNTER 2023-01-05 15:46 | Inpatient (IN) | payer MEDICAID ==
[~2023-01-05] VITALS: Ht 167.6 cm; Wt 115.2 kg
[2023-01-05 15:57] VITALS: BP 140/71
--- NOTE | 2023-01-05 16:05 | NUR ---
here for chest pain, ekg shows a fib, o2 sat 98% ra
--- NOTE | 2023-01-05 16:05 | NUR ---
PT AMB TO BED 1
[2023-01-05] MEDS ORDERED: MORPHINE SULFATE 4 MG/ML SYR IVP ONE ×3 (16:15→23:55)
[2023-01-05 17:03] LABS: BASOPHILS % (AUTO) 0.5 % (0.0-2.0); EOSINOPHILS # (AUTO) 0.1 K/uL (0-0.4); EOSINOPHILS % (AUTO) 1.6 % (0.0-4.0); HEMOGLOBIN 10.1 g/dL (12.0-16.0); LYMPHOCYTES # (AUTO) 0.7 K/uL (2.5-16.5); LYMPHOCYTES % (AUTO) 18.6 % (20.5-51.1); MEAN CORPUSCULAR HEMOGLOBIN 24 pg (27-31); MEAN CORPUSCULAR HGB CONC 32 g/dL (33-37); MEAN CORPUSCULAR VOLUME 76.2 fL (80-94); MONOCYTES # (AUTO) 0.3 K/uL (0.8-1.0); MONOCYTES % (AUTO) 8.3 % (1.7-9.3); NEUTROPHILS # (AUTO) 2.8 K/uL (1.8-7.7); PLATELET COUNT (AUTO) 129 K/uL (140-450); RED CELL DISTRIBUTION WIDTH 21.7 % (11.6-13.7)
[2023-01-05 17:06] LABS: WHITE BLOOD COUNT (AUTO) 3.9 K/uL (4.8-10.8)
[2023-01-05 17:10] LABS: ALBUMIN 3.1 g/dL (3.4-5.0); ANION GAP 13.9 (8-16); ASPARTATE AMINOTRANSFERASE 26 U/L (15-37); CARBON DIOXIDE 24.2 mmol/L (21-32); CHLORIDE 106 mmol/L (98-107); CREATININE 0.9 mg/dL (0.6-1.3); GFR ARICAN-AMERICAN 89 mL/min (>90); GLUCOSE 113 mg/dL (74-106); LIPASE 106 U/L (73-393); POTASSIUM 4.1 mmol/L (3.5-5.1); SODIUM SERUM 140 mmol/L (136-145); TOTAL BILIRUBIN 0.2 mg/dL (0.0-1.0); UREA NITROGEN, BLOOD 8 mg/dL (7-18)
[2023-01-05] MEDS ORDERED: diphenhydrAMINE 50 MG/ML VIAL IVP ONE ×2 (17:40→21:40)
--- NOTE | 2023-01-05 21:00 | NUR ---
MID LINE R SIDE PLACED BY PATIENCE RN PICC RN. CONSENT SIGNED BY PATIENT DR ANDRES
--- NOTE | 2023-01-05 21:56 | NUR ---
PT IS RESTING IN BED WITH HOB ELEVATED. 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 CP /SOB X1DAY. 07/09 PRESSURE LIKE PAIN RADIATES TO BACK AND ABD. DENIES N/V. +SOB WITH ACTIVITY OR AT REST. HX OF PE . PT HAS POOR SAGE ACCESS PICC LINE RN TO PLACE PICC OR MIDLINE. PT IS A&OX4 RESP EVEN AND UNLABORED. IODINE KETOROLAC PE AFIB ASTHMA
--- NOTE | 2023-01-05 22:49 | NUR ---
PENDING CTA SCAN.
--- NOTE | 2023-01-05 22:57 | NUR ---
PT BACK FROM CT
--- NOTE | 2023-01-05 23:11 | NUR ---
URINE AND COVID SWAB COLLECTED
--- NOTE | 2023-01-05 23:22 | NUR ---
FOOD PROVIDED TO PT BACK ON BEDSIDE MONITOR. PENDING CTA RESULTS
[2023-01-05] MEDS ORDERED: ENOXAPARIN 100 MG/ML SYR SUBQ ONE (23:25)
--- NOTE | 2023-01-05 23:26 | NUR ---
DR ANDRES AT BEDSIDE PT WILL BE ADMITED FOR PULMONARY EMBOLISM
[2023-01-05] MEDS ORDERED: HEPARIN PER PHARMACY MC PRN (23:45)
[2023-01-06] MEDS ORDERED: TRAZ-343 PO (00:29)
--- NOTE | 2023-01-06 00:29 | NUR ---
PT BELONGINGS AND MED RECONCILE COMPLETED
[2023-01-06] MEDS ORDERED: diphenhydrAMINE 50 MG/ML VIAL IVP ONE (03:50)
[2023-01-06] MEDS ORDERED: MORPHINE SULFATE 4 MG/ML SYR IVP ONE (03:50)
--- NOTE | 2023-01-06 04:05 | NUR ---
PT IS NPO
--- NOTE | 2023-01-06 04:08 | NUR ---
PT IS RESTING WITH HOB ELEVATED. DENIES SOB AT REST . IS 07/09 SHARP CP. MEDS GIVEN. VS WNL. SP02 95% RA. PENDING BED ASSIG
[2023-01-06 08:00] VITALS: BP 93/62
[2023-01-06] MEDS ORDERED: MAG SULF 2000 MG/WATER PREMIX 50 ML IV PRN (08:00)
--- NOTE | 2023-01-06 08:23 | NUR ---
[facility] Admited to TELEMETRY. Will go to room 112B. Belongings list completed. Report to
--- NOTE | 2023-01-06 08:49 | NUR ---
@0820 RECEIVE PATIENT FROM HOME TO ER FOR CHEST PAIN; DIAGNOSIS WITH PULMONARY EMBOLISM. PATIENT COME FROM HOME WITH HX OF ASTHMA, MITRAL REGURGITATION, A, FIB, CARDIOMEGALY, HTN, CEREBROVASCULAR ACCIDE. PATIENT ADMIT UNDER CARE OF DR. BAKER, ALLERGIES TO IODINE & KETOROLAC. PATIENT ALERT X 4, AMBULATORY, TL. MONITOR SHOWS A. FIB AND HAD PE LAST YEAR PER PATIENT . IV MIDLINE AT [facility] DOUBLE LUMEN NO ACUTE SKIN ISSUE. VITAL WITHIN PATIENT'S BASELINE (T-P-R: 97.2-73-19, BP: 93/62, O2 SAT: 96% IN ROOM AIR) WILL CONTINUE TO MONITOR
--- NOTE | 2023-01-06 08:56 | NUR ---
PATIENT HAS BEEN SCREENED AND CATEGORIZED LOW NUTRITION RISK. PATIENT WILL BE SEEN WITHIN 7 DAYS OF ADMISSION. 01/05/23-01/12/[address]
[2023-01-06 09:40] LABS: PROTHROMBIN TIME 9.9 secs (10.8-13.4)
[2023-01-06] MEDS ORDERED: hePARIN / DEXT 5% PREMIX 250 ML IV SCH (09:50)
[2023-01-06] MEDS ORDERED: MORPHINE SULFATE 5 MG/ML VIAL IVP PRN (11:30)
[2023-01-06 12:00] VITALS: BP 64/83
[2023-01-06] MEDS: MORPHINE SULFATE 2 MG/ML SYR IVP PRN ×2 (14:04→20:08)
[2023-01-06 15:45] LABS: PROTHROMBIN TIME 10.4 secs (10.8-13.4)
[2023-01-06 16:00] VITALS: BP 119/73
--- NOTE | 2023-01-06 19:28 | NUR ---
ENDORSE PATIENT TO PM SHIFT WITH HEPARIN DRIP ORDER STOP. PATIENT IS CURRENT ON PRN: MORPHINE 5MG Q6HR, BENADRYL 25MG Q8HR & ELIQUIS BID
[2023-01-06] MEDS ORDERED: MORPHINE SULFATE 2 MG/ML SYR IVP PRN (20:30)
[2023-01-06] MEDS ORDERED: LORazepam 2 MG/ML VIAL IVP PRN (20:30)
[2023-01-06] MEDS ORDERED: ZOLPIDEM 10 MG TAB PO PRN (20:30)
[2023-01-06] MEDS ORDERED: ACETAMINOPHEN 325 MG TAB PO PRN (20:30)
[2023-01-06] MEDS ORDERED: DOCUSATE SODIUM 100 MG GELCAP PO PRN (20:30)
[2023-01-06] MEDS ORDERED: APIXABAN 2.5 MG TAB PO SCH (21:00)
--- NOTE | 2023-01-06 22:14 | NUR ---
PT CALLED AND WANTED TO SIGN AMA. 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
--- NOTE | 2023-01-06 22:30 | NUR ---
PT SIGNED AMA.PT AMBULATED TO LOBBY WITH STEADY GAIT. PT IS STABLE.
== END 2023-01-06 22:30 | disposition left against medical advice (07) | DRG 134 ==
LOC: MED 15:46 → MTU 23:50
PROVIDERS: ADMIT Family Medicine; ATTEND Family Medicine
PROC: 05HY33Z Insertion of Infusion Device into Upper Vein, Percutaneous Approach (ICD-10-PCS; principal; 2023-01-05)
PROC: B54MZZA Ultrasonography of Right Upper Extremity Veins, Guidance (ICD-10-PCS; 2023-01-05)
DX: I26.94 Multiple subsegmental thrombotic pulmonary emboli without acute cor pulmonale (principal); D69.6 Thrombocytopenia, unspecified; D64.9 Anemia, unspecified; I48.91 Unspecified atrial fibrillation; F41.9 Anxiety disorder, unspecified; I10 Essential (primary) hypertension; J45.909 Unspecified asthma, uncomplicated; I34.0 Nonrheumatic mitral (valve) insufficiency; E66.9 Obesity, unspecified; G47.33 Obstructive sleep apnea (adult) (pediatric); Z20.822 Contact with and (suspected) exposure to COVID-19; Z86.711 Personal history of pulmonary embolism; Z79.01 Long term (current) use of anticoagulants; Z88.8 Allergy status to other drugs, medicaments and biological substances; Z91.041 Radiographic dye allergy status; Z79.899 Other long term (current) drug therapy; Z86.73 Personal history of transient ischemic attack (TIA), and cerebral infarction without residual deficits; Z90.49 Acquired absence of other specified parts of digestive tract; Z68.41 Body mass index [BMI] 40.0-44.9, adult
CPT/HCPCS: 36415; 71045; 71275; 80053; 83036; 83690; 84484; 84703; 85025; 85379; 85610; 85730; 87081; 93005; 96372; 96374; 96375; 96376; 99285; J1200; J1644; J1650; J2270; Q0163; Q9967

== ENCOUNTER 2023-01-18 02:25 | Emergency (ER) | payer OTHER, MEDICAID ==
[~2023-01-18] VITALS: Ht 167.6 cm; Wt 115.7 kg
[~2023-01-18 02:25] MED LIST changes: -OMEP20TA56 PO; -PANT40PK PO; +TRAZ-343 PO
[2023-01-18 02:39] VITALS: BP 152/91
--- NOTE | 2023-01-18 02:44 | NUR ---
TO BED 2 FROM TRIAGE
--- NOTE | 2023-01-18 02:45 | NUR ---
Leann black in [facility] - 01/18/23 at 0245 by SYLVIA PT TAKEN TO BED 2
[2023-01-18] MEDS ORDERED: CYCLOBENZAPRINE 10 MG TAB PO ONE (02:55)
[2023-01-18 03:06] LABS: APPEARANCE,URINE CLEAR (CLEAR); BILIRUBIN,URINE NEGATIVE (NEGATIVE); BLOOD, URINE 3+ (NEGATIVE); COLOR,URINE YELLOW (YELLOW); LEUKOCYTE ESTERASE ,URINE NEGATIVE (NEGATIVE); NITRITE, URINE NEGATIVE (NEGATIVE); PH,URINE 5.5 (5.0-9.0); UGLUCOSE NEGATIVE (NEGATIVE)
[2023-01-18 03:18] LABS: WBC,URINE 0-5 /HPF (0-5)
--- NOTE | 2023-01-18 04:10 | NUR ---
Patient does not wish to proceed with medical care recommended by ANGEL VERDUZCO. Patient given information related to possible complications, up to and including , which could occur as a result of leaving hospital at this time. Patient verbalizes understanding of risks involved leaving against medical advice. Patient has signed AMA form.
[2023-01-18 04:35] VITALS: BP 152/91
== END 2023-01-18 04:10 | disposition left against medical advice (07) ==
LOC: MED 02:25
DX: R04.2 Hemoptysis (principal); M79.10 Myalgia, unspecified site; K92.1 Melena; I25.10 Atherosclerotic heart disease of native coronary artery without angina pectoris; I10 Essential (primary) hypertension; J45.909 Unspecified asthma, uncomplicated; Z86.73 Personal history of transient ischemic attack (TIA), and cerebral infarction without residual deficits; Z79.899 Other long term (current) drug therapy; V49.88XA Car occupant (driver) (passenger) injured in other specified transport accidents, initial encounter; Y93.89 Activity, other specified; Y92.89 Other specified places as the place of occurrence of the external cause; Y99.8 Other external cause status
CPT/HCPCS: 71045; 72170; 81001; 81025; 99284

== ENCOUNTER 2023-02-01 17:23 | Emergency (ER) | payer MEDICAID, OTHER ==
[~2023-02-01] VITALS: Ht 170.2 cm; Wt 99.8 kg
[2023-02-01 17:49] VITALS: BP 140/91
[2023-02-01 18:24] LABS: BASOPHILS % (AUTO) 0.3 % (0.0-2.0); EOSINOPHILS # (AUTO) 0.1 K/uL (0-0.4); EOSINOPHILS % (AUTO) 2.2 % (0.0-4.0); HEMOGLOBIN 11.1 g/dL (12.0-16.0); LYMPHOCYTES # (AUTO) 0.7 K/uL (2.5-16.5); MEAN CORPUSCULAR HEMOGLOBIN 25 pg (27-31); MEAN CORPUSCULAR HGB CONC 32 g/dL (33-37); MEAN CORPUSCULAR VOLUME 78.7 fL (80-94); MONOCYTES # (AUTO) 0.4 K/uL (0.8-1.0); MONOCYTES % (AUTO) 12.6 % (1.7-9.3); NEUTROPHILS # (AUTO) 2.2 K/uL (1.8-7.7); NEUTROPHILS % (AUTO) 63.9 % (42.2-75.2); PLATELET COUNT (AUTO) 201 K/uL (140-450); RED BLOOD CELL COUNT(AUTO) 4.44 MIL/uL (4.20-5.40); RED CELL DISTRIBUTION WIDTH 22.2 % (11.6-13.7); WHITE BLOOD COUNT (AUTO) 3.4 K/uL (4.8-10.8)
[2023-02-01 18:51] LABS: ALBUMIN 3.7 g/dL (3.4-5.0); ANION GAP 8.9 (8-16); ASPARTATE AMINOTRANSFERASE 24 U/L (15-37); CARBON DIOXIDE 30.4 mmol/L (21-32); CHLORIDE 104 mmol/L (98-107); CREATININE 0.8 mg/dL (0.6-1.3); GFR ARICAN-AMERICAN 102 mL/min (>90); GLUCOSE 84 mg/dL (74-106); LIPASE 109 U/L (73-393); POTASSIUM 3.3 mmol/L (3.5-5.1); SODIUM SERUM 140 mmol/L (136-145); TOTAL BILIRUBIN 0.2 mg/dL (0.0-1.0); UREA NITROGEN, BLOOD 5 mg/dL (7-18)
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
--- NOTE | 2023-02-01 19:28 | NUR ---
Dr. Coles examining patient.
--- NOTE | 2023-02-01 19:29 | NUR ---
Patient taken to bed 7.
[2023-02-01] MEDS ORDERED: ONDANSETRON 4 MG/2 ML VIAL IVP ONE ×2 (19:30→23:15)
[2023-02-01] MEDS ORDERED: NACL 0.9% 1,000 ML IV ONE (19:30)
[2023-02-01] MEDS ORDERED: MORPHINE SULFATE 4 MG/ML SYR IVP ONE ×2 (19:30→23:15)
[2023-02-01] MEDS ORDERED: diphenhydrAMINE 50 MG/ML VIAL IVP ONE ×2 (19:50→23:15)
[2023-02-01] MEDS ORDERED: methylPREDNISolone SS 125 MG/2 ML VIAL IVP ONE (19:50)
[2023-02-01] MEDS ORDERED: MORPHINE SULFATE 4 MG/ML SYR ONE (20:49)
[2023-02-01] MEDS ORDERED: ONDANSETRON 4 MG/2 ML VIAL ONE (21:39)
[2023-02-02 00:30] LABS: BASOPHILS % (AUTO) 0.1 % (0.0-2.0); EOSINOPHILS % (AUTO) 0.7 % (0.0-4.0); HEMATOCRIT 32.5 % (36-48); HEMOGLOBIN 10.5 g/dL (12.0-16.0); LYMPHOCYTES # (AUTO) 0.3 K/uL (2.5-16.5); MEAN CORPUSCULAR HEMOGLOBIN 25 pg (27-31); MEAN CORPUSCULAR HGB CONC 32 g/dL (33-37); MEAN CORPUSCULAR VOLUME 78.1 fL (80-94); MONOCYTES # (AUTO) 0.1 K/uL (0.8-1.0); MONOCYTES % (AUTO) 2.6 % (1.7-9.3); NEUTROPHILS # (AUTO) 3.3 K/uL (1.8-7.7); NEUTROPHILS % (AUTO) 87.6 % (42.2-75.2); PLATELET COUNT (AUTO) 193 K/uL (140-450); RED BLOOD CELL COUNT(AUTO) 4.16 MIL/uL (4.20-5.40); RED CELL DISTRIBUTION WIDTH 21.8 % (11.6-13.7); WHITE BLOOD COUNT (AUTO) 3.8 K/uL (4.8-10.8)
[2023-02-02] MEDS ORDERED: diphenhydrAMINE 50 MG/ML VIAL IVP ONE (01:45)
[2023-02-02] MEDS ORDERED: diphenhydrAMINE 50 MG/ML VIAL ONE (01:46)
--- NOTE | 2023-02-02 03:38 | NUR ---
Patient reported, pain 07/09, Dr. Coles notified.
[2023-02-02] MEDS ORDERED: MORPHINE SULFATE 4 MG/ML SYR IVP ONE (03:45)
[2023-02-02] MEDS ORDERED: LID5T TP (04:08)
[2023-02-02] MEDS ORDERED: ACET-9527 PO (04:08)
[2023-02-02] MEDS ORDERED: ACET-10509 PO (04:08)
[2023-02-02 04:50] VITALS: BP 135/89
--- NOTE | 2023-02-02 04:50 | NUR ---
Patient discharged with v/s stable. Written and verbal after care instructions given and explained. Patient verbalized understanding. Ambulatory with steady gait. All questions addressed prior to discharge. Advised to follow up with PMD. pt left with her belongings.
== END 2023-02-02 04:50 | disposition home or self-care (01) ==
LOC: MED 17:23
DX: R10.31 Right lower quadrant pain (principal); R06.02 Shortness of breath; I26.99 Other pulmonary embolism without acute cor pulmonale; J45.909 Unspecified asthma, uncomplicated; I10 Essential (primary) hypertension; I25.10 Atherosclerotic heart disease of native coronary artery without angina pectoris; Z86.73 Personal history of transient ischemic attack (TIA), and cerebral infarction without residual deficits; Z91.040 Latex allergy status; Z79.1 Long term (current) use of non-steroidal anti-inflammatories (NSAID); Z79.899 Other long term (current) drug therapy; V49.88XA Car occupant (driver) (passenger) injured in other specified transport accidents, initial encounter; Y93.89 Activity, other specified; Y92.89 Other specified places as the place of occurrence of the external cause; Y99.8 Other external cause status
CPT/HCPCS: 36415; 36556; 70450; 71045; 71260; 72125; 74177; 80053; 81025; 83690; 84484; 84703; 85025; 93005; 96361; 96374; 96375; 96376; 99285; J1200; J2270; J2405; J2930; J7030; Q0092; Q9967

== ENCOUNTER 2023-02-13 18:50 | Emergency (ER) | payer MEDICAID, OTHER ==
[~2023-02-13] VITALS: Ht 167.6 cm; Wt 115.7 kg
[~2023-02-13 18:50] MED LIST changes: +ACET-10509 PO; +ACET-9527 PO; +LID5T TP
[2023-02-13 19:00] VITALS: BP 141/92
--- NOTE | 2023-02-13 20:45 | NUR ---
SEEN AND EXAMINED BY NOLAN WITH ORDERS AND CARRIED OUT
--- NOTE | 2023-02-13 21:20 | NUR ---
PATIENT ELOPED FROM FACILITY. DISCHARGE INSTRUCTIONS NOT GIVEN TO PATIENT. DR. THOMPSON NOTIFIED.
[2023-02-13 21:30] LABS: BASOPHILS % (AUTO) 0.7 % (0.0-2.0); EOSINOPHILS # (AUTO) 0.1 K/uL (0-0.4); EOSINOPHILS % (AUTO) 2.4 % (0.0-4.0); HEMATOCRIT 41.3 % (36-48); HEMOGLOBIN 13.5 g/dL (12.0-16.0); LYMPHOCYTES # (AUTO) 1.4 K/uL (2.5-16.5); MEAN CORPUSCULAR HEMOGLOBIN 26 pg (27-31); MEAN CORPUSCULAR HGB CONC 33 g/dL (33-37); MEAN CORPUSCULAR VOLUME 81.1 fL (80-94); MONOCYTES # (AUTO) 0.5 K/uL (0.8-1.0); MONOCYTES % (AUTO) 10.5 % (1.7-9.3); NEUTROPHILS # (AUTO) 3.2 K/uL (1.8-7.7); NEUTROPHILS % (AUTO) 60.4 % (42.2-75.2); PLATELET COUNT (AUTO) 112 K/uL (140-450); RED CELL DISTRIBUTION WIDTH 24.1 % (11.6-13.7); WHITE BLOOD COUNT (AUTO) 5.2 K/uL (4.8-10.8)
[2023-02-13 21:44] LABS: ALBUMIN 4.5 g/dL (3.4-5.0); ANION GAP 13.9 (8-16); ASPARTATE AMINOTRANSFERASE 23 U/L (15-37); CARBON DIOXIDE 27.3 mmol/L (21-32); CHLORIDE 102 mmol/L (98-107); CREATININE 0.9 mg/dL (0.6-1.3); GFR ARICAN-AMERICAN 89 mL/min (>90); GLUCOSE 106 mg/dL (74-106); LIPASE 150 U/L (73-393); POTASSIUM 3.2 mmol/L (3.5-5.1); SODIUM SERUM 140 mmol/L (136-145); TOTAL BILIRUBIN 0.3 mg/dL (0.0-1.0); UREA NITROGEN, BLOOD 8 mg/dL (7-18)
== END 2023-02-13 21:05 | disposition left against medical advice (07) ==
LOC: MED 18:50
DX: R07.9 Chest pain, unspecified (principal); J45.909 Unspecified asthma, uncomplicated; I25.10 Atherosclerotic heart disease of native coronary artery without angina pectoris; I10 Essential (primary) hypertension; Z79.899 Other long term (current) drug therapy; Z79.1 Long term (current) use of non-steroidal anti-inflammatories (NSAID); Z91.040 Latex allergy status
CPT/HCPCS: 36415; 80053; 83690; 84484; 85025; 93005; 99284

== ENCOUNTER 2023-04-16 17:29 | Emergency (ER) | payer MEDICAID ==
[~2023-04-16] VITALS: Ht 167.6 cm; Wt 117.9 kg
[2023-04-16 17:35] VITALS: BP 139/96; PULSE 84; RESP 20; TEMP 97.8; O2SAT 98
[2023-04-16] MEDS ORDERED: ACETAMINOPHEN 325 MG TAB PO ONE (18:45)
--- NOTE | 2023-04-16 18:51 | NUR ---
Patient does not wish to proceed with medical care recommended by MD THOMPSON. Patient given information related to possible complications, up to and including , which could occur as a result of leaving hospital at this time. Patient verbalizes understanding of risks involved leaving against medical advice. Patient has signed AMA form.
--- NOTE | 2023-04-16 18:52 | NUR ---
The patient's care was reviewed and supervised by Paz Agosto, RN, RN.
== END 2023-04-16 18:51 | disposition left against medical advice (07) ==
LOC: MED 17:29
DX: R07.9 Chest pain, unspecified (principal); J45.909 Unspecified asthma, uncomplicated; I11.0 Hypertensive heart disease with heart failure; Z91.040 Latex allergy status; Z79.1 Long term (current) use of non-steroidal anti-inflammatories (NSAID); Z79.899 Other long term (current) drug therapy
CPT/HCPCS: 93005; 99283

== ENCOUNTER 2023-04-25 23:30 | Emergency (ER) | payer MEDICAID ==
[~2023-04-25] VITALS: Ht 167.6 cm; Wt 117.9 kg
[2023-04-25 23:50] VITALS: BP 136/90; PULSE 90; RESP 16; TEMP 98; O2SAT 100
--- NOTE | 2023-04-25 23:53 | NUR ---
TO LOBBY A/W BED AMBULATORY
--- NOTE | 2023-04-26 01:29 | NUR ---
ERMD AT BEDSIDE
--- NOTE | 2023-04-26 01:29 | NUR ---
PT TO BED 09.
--- NOTE | 2023-04-26 01:30 | NUR ---
Pt BIB herself with c/o vomitting with blood. She had 4x of vomitting from 1999hr. Pmhx of Cardiac problems and Gastric ulcer. Allergic to TORADOL and COTRAST. Conscious, AAOx4.
[2023-04-26 02:17] LABS: BASOPHILS % (AUTO) 0.6 % (0.0-2.0); EOSINOPHILS # (AUTO) 0.2 K/uL (0-0.4); EOSINOPHILS % (AUTO) 4.6 % (0.0-4.0); HEMOGLOBIN 12.9 g/dL (12.0-16.0); LYMPHOCYTES # (AUTO) 0.8 K/uL (2.5-16.5); LYMPHOCYTES % (AUTO) 21.3 % (20.5-51.1); MEAN CORPUSCULAR HEMOGLOBIN 29 pg (27-31); MEAN CORPUSCULAR HGB CONC 34 g/dL (33-37); MEAN CORPUSCULAR VOLUME 85.1 fL (80-94); MONOCYTES # (AUTO) 0.5 K/uL (0.8-1.0); MONOCYTES % (AUTO) 13.4 % (1.7-9.3); NEUTROPHILS # (AUTO) 2.2 K/uL (1.8-7.7); NEUTROPHILS % (AUTO) 60.1 % (42.2-75.2); PLATELET COUNT (AUTO) 198 K/uL (140-450); RED BLOOD CELL COUNT(AUTO) 4.47 MIL/uL (4.20-5.40); RED CELL DISTRIBUTION WIDTH 15.5 % (11.6-13.7); WHITE BLOOD COUNT (AUTO) 3.6 K/uL (4.8-10.8)
[2023-04-26] MEDS ORDERED: HYDROcodone/APAP 5/325 MG 1 TAB TAB PO ONE (02:20)
[2023-04-26] MEDS ORDERED: ONDANSETRON 4 MG ODT PO ONE (02:20)
--- NOTE | 2023-04-26 02:37 | NUR ---
PT TAKEN TO CT
[2023-04-26 02:45] LABS: SODIUM SERUM 139 mmol/L (136-145)
[2023-04-26 02:46] LABS: ANION GAP 0.3 (8-16); ASPARTATE AMINOTRANSFERASE 32 U/L (15-37); CARBON DIOXIDE 25.2 mmol/L (21-32); CHLORIDE 104 mmol/L (98-107); CREATININE 0.7 mg/dL (0.6-1.3); GFR ARICAN-AMERICAN 119 mL/min (>90); GLUCOSE 106 mg/dL (74-106); POTASSIUM 3.7 mmol/L (3.5-5.1); TOTAL BILIRUBIN 0.3 mg/dL (0.0-1.0); UREA NITROGEN, BLOOD 9 mg/dL (7-18)
[2023-04-26 02:47] LABS: ALBUMIN 3.8 g/dL (3.4-5.0); LIPASE 135 U/L (73-393)
--- NOTE | 2023-04-26 02:48 | NUR ---
PT RETURN FROM RADIOLOGY
[2023-04-26 03:01] VITALS: BP 136/90; PULSE 90; RESP 16; TEMP 98; O2SAT 100
--- NOTE | 2023-04-26 03:01 | NUR ---
Patient does not wish to proceed with medical care recommended by MARIANGEL. Patient given information related to possible complications, up to and including , which could occur as a result of leaving hospital at this time. Patient verbalizes understanding of risks involved leaving against medical advice. Patient has signed AMA form.
== END 2023-04-26 03:01 | disposition left against medical advice (07) ==
LOC: MED 23:30
DX: R11.2 Nausea with vomiting, unspecified (principal); R10.9 Unspecified abdominal pain; R07.9 Chest pain, unspecified; K92.0 Hematemesis; J45.909 Unspecified asthma, uncomplicated; I10 Essential (primary) hypertension; Z91.040 Latex allergy status; Z88.8 Allergy status to other drugs, medicaments and biological substances; Z86.73 Personal history of transient ischemic attack (TIA), and cerebral infarction without residual deficits; Z79.899 Other long term (current) drug therapy
CPT/HCPCS: 36415; 71045; 74176; 80053; 83690; 84484; 85025; 86886; 86900; 86901; 99285; Q0162

== ENCOUNTER 2023-05-20 18:08 | Emergency (ER) | payer MEDICAID ==
[~2023-05-20] VITALS: Ht 175.3 cm; Wt 95.3 kg
[2023-05-20] MEDS ORDERED: diphenhydrAMINE 50 MG/ML VIAL IVP ONE (18:25)
[2023-05-20 19:00] VITALS: BP 132/70; PULSE 79; RESP 17; TEMP 97.4; O2SAT 98
[2023-05-20] MEDS ORDERED: TENECTEPLASE 50 MG KIT IV ONE (19:40)
[2023-05-20] MEDS ORDERED: levETIRAcetam 1,000 MG in NACL 0.9% 100 ML IV ONE (20:30)
[2023-05-20] MEDS ORDERED: MORPHINE SULFATE 4 MG/ML SYR IVP ONE ×2 (20:35→22:45)
[2023-05-20] MEDS ORDERED: levETIRAcetam 100 MG/ML VIAL IV ONE (21:06)
[2023-05-20] MEDS ORDERED: ASPIRIN 81 MG TAB.CHEW PO ONE (21:35)
[2023-05-21 00:46] VITALS: BP 125/82; PULSE 85; RESP 18; O2SAT 97
== END 2023-05-21 00:46 | disposition short-term general hospital (02) ==
LOC: MED 18:08
DX: R53.1 Weakness (principal); R56.9 Unspecified convulsions; I11.9 Hypertensive heart disease without heart failure; J45.909 Unspecified asthma, uncomplicated; Z79.1 Long term (current) use of non-steroidal anti-inflammatories (NSAID); Z88.8 Allergy status to other drugs, medicaments and biological substances; Z91.040 Latex allergy status; Z79.899 Other long term (current) drug therapy
CPT/HCPCS: 70450; 71045; 93005; 96365; 96375; 96376; 99285; J1953; J2270; Q0092

== ENCOUNTER 2023-05-29 | Emergency (ER) | payer MEDICAID ==
[~2023-05-29] VITALS: Ht 167.6 cm; Wt 111.6 kg
[2023-05-29 00:29] VITALS: BP 120/86; PULSE 82; RESP 18; TEMP 96.9; O2SAT 98
== END 2023-05-29 02:16 | disposition left against medical advice (07) ==
LOC: MED
DX: R20.0 Anesthesia of skin (principal); Z53.21 Procedure and treatment not carried out due to patient leaving prior to being seen by health care provider
CPT/HCPCS: 99281